=== PATIENT | female | born 1975 | race Caucasian/White ===

== ENCOUNTER 2019-05-30 10:42 | Outpatient (CLI) | payer OTHER, SELFPAY ==
--- NOTE | 2019-05-30 10:54 | XR_ITS ---
WS: [id number] KUB, 05/30/2019 Clinical Data: back pain Comparison: None. Findings: No abnormal intraabdominal masses or calcifications are seen. There is no dilatated small bowel or ev idence of obstruction. There are clips in the right upper quadrant from a cholecystectomy. There is a moderate amount of fec al material throughout the colon. XR/XR KUB [id number] Impression: Negative KUB.
[2019-05-30 11:35] LABS: Urine Appearance Clear (CLEAR); Urine Color Yellow (Yellow)
[2019-05-30 11:36] LABS: Bilirubin Urine Neg (NEGATIVE); Blood Urine Neg (Negative); Glucose Urine UA Norm (Normal); Ketones Urine Negative (Negative); Leukocyte Esterase Urine Negative (Negative); Nitrate Urine Negative (Negative); Protein Urine Neg (Negative); Sulfosalicylic Acid Urine Negative; Urobilinogen Urine Norm (Negative); pH Urine 8 (5-7)
[2019-05-30 11:42] LABS: Add Urine Culture? No; Bacteria Urine TRACE
== END 2019-05-30 10:43 | disposition home or self-care (01) ==
LOC: RAD 10:45
PROVIDERS: Family Provider Internal Medicine; PCP Internal Medicine; Visit Provider Internal Medicine
DX: M54.9 Dorsalgia, unspecified (principal)
CPT/HCPCS: 74018; 81001

== ENCOUNTER → 2019-11-17 12:33 | Outpatient (BNVA) | payer OTHER, SELFPAY | PROVIDERS: Family Provider Internal Medicine; PCP Internal Medicine; Visit Provider Nurse Practitioner Family | DX: R05 Cough (principal) | CPT/HCPCS: 71046 ==

== ENCOUNTER → 2019-11-20 16:25 | Outpatient (BNVA) | payer OTHER, SELFPAY | PROVIDERS: Family Provider Internal Medicine; PCP Internal Medicine; Visit Provider Nurse Practitioner Family | DX: K20.9 Esophagitis, unspecified (principal); K21.9 Gastro-esophageal reflux disease without esophagitis; R53.83 Other fatigue; R10.9 Unspecified abdominal pain; Z79.899 Other long term (current) drug therapy | CPT/HCPCS: 80053; 82150; 83690; 85025 ==

== ENCOUNTER → 2020-03-12 14:55 | Outpatient (BNVA) | payer OTHER, SELFPAY | PROVIDERS: Family Provider Internal Medicine; PCP Internal Medicine; Visit Provider Family Medicine | DX: Z11.59 Encounter for screening for other viral diseases (principal); Z20.828 Contact with and (suspected) exposure to other viral communicable diseases | CPT/HCPCS: 87635 ==

== ENCOUNTER → 2020-03-14 00:01 | Outpatient (BNVA) | payer OTHER, SELFPAY | PROVIDERS: Family Provider Internal Medicine; PCP Internal Medicine; Visit Provider Nurse Practitioner Family | DX: Z20.828 Contact with and (suspected) exposure to other viral communicable diseases (principal); R06.02 Shortness of breath; J06.9 Acute upper respiratory infection, unspecified; R06.00 Dyspnea, unspecified; R06.2 Wheezing | CPT/HCPCS: 87426 ==

== ENCOUNTER → 2020-08-27 16:00 | Outpatient (BNVA) | payer OTHER, SELFPAY | PROVIDERS: Family Provider Internal Medicine; PCP Internal Medicine; Visit Provider Internal Medicine | DX: E04.9 Nontoxic goiter, unspecified (principal); K83.4 Spasm of sphincter of Oddi | CPT/HCPCS: 84443 ==

== ENCOUNTER 2020-09-23 08:03 | Outpatient (CLI) | payer OTHER, SELFPAY ==
--- NOTE | 2020-09-23 08:30 | US_ITS ---
WS: [id number] THYROID ULTRASOUND (TI-RADS CRITERIA) History: Nontoxic goiter.. Technique: Ultrasound examination of the thyroid and adjacent soft tissues is performed. FINDINGS: Right lobe: 2.7 cm x 1.1 cm x 0.8 cm. Volume: 1.3 cm3. Normal size. Calcified nodule in the inferior pole measures 4 x 4 mm. There is shadowing posteriorly. No dominant or suspicious mass. Lymph nodes: None. Left lobe: 3.9 cm x 1.3 cm x 1.0 cm. Volume: 2.6 cm3. Normal size and echotexture. No significant or dominant nodules are present. Lymph nodes: None US/US thyroid [id number] Impression: TR1 Recommendation:No FNA or follow-up. Based upon the TI-RADS criteria the calcified subcentimeter nodule in the lower pole of the RIGHT thyroid does not need further workup.
== END 2020-09-23 08:04 | disposition home or self-care (01) ==
LOC: RAD 08:09
PROVIDERS: PCP Internal Medicine; Visit Provider Internal Medicine
DX: E04.9 Nontoxic goiter, unspecified (principal)
CPT/HCPCS: 76536

== ENCOUNTER → 2021-02-13 15:47 | Outpatient (BNVA) | payer OTHER, SELFPAY | PROVIDERS: PCP Internal Medicine; Visit Provider Internal Medicine | DX: I47.1 Supraventricular tachycardia (principal); F41.1 Generalized anxiety disorder | CPT/HCPCS: 84443 ==

== ENCOUNTER → 2021-02-28 00:01 | Outpatient (BNVA) | payer OTHER, SELFPAY | PROVIDERS: PCP Internal Medicine; Visit Provider Obstetrics & Gynecology | DX: R32 Unspecified urinary incontinence (principal); N81.10 Cystocele, unspecified; N81.6 Rectocele | CPT/HCPCS: 87086 ==

== ENCOUNTER → 2021-03-25 10:03 | Outpatient (BNVA) | payer OTHER, SELFPAY | PROVIDERS: PCP Internal Medicine; Visit Provider Nurse Practitioner Family | DX: Z20.822 Contact with and (suspected) exposure to COVID-19 (principal) | CPT/HCPCS: 87635 ==

== ENCOUNTER → 2021-04-04 12:44 | Outpatient (BNVA) | payer OTHER, SELFPAY | PROVIDERS: PCP Internal Medicine; Visit Provider Obstetrics & Gynecology | DX: Z20.822 Contact with and (suspected) exposure to COVID-19 (principal); N39.3 Stress incontinence (female) (male); N81.10 Cystocele, unspecified; N81.6 Rectocele | CPT/HCPCS: 87635 ==

== ENCOUNTER 2021-04-09 11:25 | Observation (INO) | payer OTHER, SELFPAY ==
[2021-04-07 12:57] VITALS: BMI 27.8
--- NOTE | 2021-04-07 13:14 | ANES.PREANE2 ---
Pre-Anesthetic Assessment Pre-Anesthetic Assessment: Height/Weight: Height 1.73 m Weight 83.007 kg Preop Diagnosis: rectocele Proposed Procedure: Operation Date: 04/09/21 09:55 Proposed Procedures p Anterior Repair augmented w/ allograft 93708 25400 N81.10 N81.6 N39.3(Not Applicable) - Giorgio Diamond MD s Posterior Repair(Not Applicable) - Giorgio Diamond MD Familial anesthetic complications: PONV Social: Social History: No alcohol and No tobacco Exam: Pre-Anes Outpt Exam: alert, oriented x 3, clear to auscultation bilaterally and regular rate & rhythm Airway: MP: 1 Dentition: Chipped (front) Pulmonary: Comments: COVID CV/HEM: CV/HEM: HTN and OK (NSTEMI in December (they think it was demand ischemia from SVT during covid)) Comments: Hx SVT , Factor V leiden carrier, but no hx of blood clots GI: GI: GERD Metabolic: Metabolic: Thyroid Anesthetic Plan: ASA status: 3 Anesthesia: General Risk of > 500 ml blood loss (7ml/kg in children): No PFSH Anesthesia PFSH: Medical History Calculus of kidney Chronic cystitis Esophagitis determined by endoscopy Factor V Leiden carrier Hypothyroid (~2013) Intraductal papilloma of both breasts both ducts removed No pertinent past medical history neghx: htn,dm,dvt/pe PCP: Dr. Cervantes Surgical History (Updated 04/07/21 @ 08:13 by Isabella Van RN) History of biliary duct stent placement (~2018) bilateral removal Hx of breast augmentation (~2001) Hx of laparoscopy (~2008) treatment of right ovarian chocolate cyst Hx of shoulder surgery (~1991) R shoulder Mammary duct ectasia (~2014) S/P cholecystectomy (~2014) S/P hysterectomy (~2001) prolapse--- severe; cystocele and rectocele repair Status post bladder repair (~2001) Family History Mother Hypertension Father Hypertension Heart disease Hypercholesteremia Grandmother Diabetes Maternal Heart disease Maternal Grandfather Heart disease Maternal Hypercholesteremia Maternal and Paternal Stroke Maternal Denies family history of Colon cancer Ovarian cancer Breast cancer Uterine cancer Thyroid disease Data Anesthesia Cardiac Studies: No Data to Display
[2021-04-07 14:23] LABS: OR HCG Qualitative Urine Negative (Negative)
[2021-04-07 15:37] LABS: Add Urine Microscopic? NO; Charge for UA Resulting for Rev
[2021-04-07 15:47] LABS: Basophils # 0.1 10^3/uL (0.0-0.1); Basophils % 0.7 %; Eosinophils # 0.2 10^3/uL (0.0-0.8); Eosinophils % 3.6 %; Hematocrit 39.9 % (37.0-47.0); Hemoglobin 13.5 g/dL (11.5-15.3); Lymphocytes # 2.4 10^3/uL (0.8-4.8); Lymphocytes % 35.9 %; Mean Corpuscular HGB Conc 33.8 g/dL (30.0-36.0); Mean Corpuscular Hemoglobin 31.1 pg (28.0-34.0); Mean Corpuscular Volume 91.9 fl (81-99); Mean Platelet Volume 11.3 fL (7.4-10.4); Monocytes # 0.3 10^3/uL (0.2-0.9); Monocytes % 4.6 %; Neutrophils # 3.68 10^3/uL (1.8-7.7); Neutrophils % 54.9 %; Nucleated Red Blood Cells % 0 %; Platelet Count 321 10^3/cmm (130-400); Red Blood Count 4.34 10^6/uL (4.1-5.3); Red Cell Distribution Width 12.4 % (12.1-15.1); White Blood Count 6.7 10^3/uL (4.0-10.0)
[2021-04-07 16:13] LABS: Alanine Aminotransferase 16 U/L (0-33); Albumin Level 4.3 g/dL (3.5-5.2); Alkaline Phosphatase 77 IU/L (35-105); Anion Gap 14.4 (5-19); Aspartate Amino Transferase 15 U/L (0-32); Blood Urea Nitrogen 9 mg/dL (6-20); Calcium 8.8 mg/dL (8.5-10.5); Carbon Dioxide 27 mmol/L (22-29); Chloride 98 mmol/L (98-107); Globulin 2.1 g/dL (1.3-4.6); Glomerular Filtration Rate 77.2 mL/min (90-130); Glucose 75 mg/dL (65-115); Osmolality Calculated 279 mOsm/kg (285-295); Potassium 3.4 mmol/L (3.5-5.1); Sodium 136 mmol/L (136-145); Total Bilirubin 0.6 mg/dL (0.15-1.2); Total Protein 6.4 g/dL (6.6-8.7)
[2021-04-07 16:27] LABS: Bilirubin Urine Neg (Negative); Blood Urine Neg (Negative); Glucose Urine UA Norm (Normal); Ketones Urine Negative (Negative); Leukocyte Esterase Urine Negative (Negative); Nitrate Urine Negative (Negative); Protein Urine Neg (Negative); Specific Gravity, Urine 1.005 (1.005-1.030); Urine Appearance Clear (CLEAR); Urine Color Straw (Yellow); Urobilinogen Urine Norm (Negative); pH Urine 7 (5-7)
[2021-04-09] VITALS (21 sets, daily range): BP systolic 105–130; BP diastolic 54–87; PULSE 58–90; RESP 15–150; TEMP 36.4–37.2; O2SAT 90–99
[2021-04-09] MEDS: sodium chloride 0.9% 500 ML IV (06:25)
--- NOTE | 2021-04-09 06:28 | P.ANESUD_ITS ---
Pre-Anesthetic Update Pre-Anesthetic Assessment: Date of Surgery/Procedure: 04/09/21 Preop Vanesa gnosis: Cystocele stage III, rectocele stage II Proposed Procedure: Operation Date: 04/09/21 07:00 Proposed Procedures p Anterior Repair augmented w/ allograft [id number] 64289 N81.10 N81.6 N39.3(Not Applicable) - Giorgio Diamond MD s Posterior Repair(Not Applicable) - Giorgio Diamond MD Any changes to Pre-Anesthetic Assessment?: No Last Intake: Intake Last Liquid Date 04/08/21 Last Liquid Time 23:00 Last Solid Date 04/08/21 Last Solid Time 19:00 Labs Last 48hrs: Laboratory Results - last 48 hr 04/07/21 04/07/21 04/07/21 12:51 13:10 13:11 WBC 6.7 RBC 4.34 Hgb 13.5 Hct 39.9 MCV 91.9 MCH 31.1 MCHC 33.8 RDW 12.4 Plt Count 321 MPV 11.3 H Neut % (Auto) 54.9 Lymph % (Auto) 35.9 [place] % (Auto) 4.6 Eos % (Auto) 3.6 Baso % (Auto) 0.7 Neut # (Auto) 3.68 Lymph # (Auto) 2.4 [place] # (Auto) 0.3 Eos # (Auto) 0.2 Baso # (Auto) 0.1 Nucleated RBC % (a uto) 0 Nucleated RBCs # 0.0 Sodium Potassium Chloride Carbon Dioxide Anion Gap BUN Creatinine GFR Calculation Glucose Calculated Osmolal ity Calcium Total Bilirubin AST ALT Alkaline Phosphata se Total Protein Albumin Globulin Urine Color Straw Urine Appearance Clear Urine pH 7 Ur Specific Gravit y 1.005 Urine Protein Neg Urine Glucose (UA) Norm Urine Ketones Negative Urine Blood Neg Urine Nitrate Negative Urine Bilirubin Neg Urine Urobilinogen Norm Ur Leukocyte Cece ase Negative Urine HCG, Qual Negative Blood Type Rho(D) Type Antibody Screen 04/07/21 04/07/21 13:11 13:11 WBC RBC Hgb Hct MCV MCH MCHC RDW Plt Count MPV Neut % (Auto) Lymph % (Auto) [place] % (Auto) Eos % (Auto) Baso % (Auto) Neut # (Auto) Lymph # (Auto) [place] # (Auto) Eos # (Auto) Baso # (Auto) Nucleated RBC % (a uto) Nucleated RBCs # Sodium 136 Potassium 3.4 L Chloride 98 Carbon Dioxide 27 Anion Gap 14.4 BUN 9 Creatinine 0.8 GFR Calculation 77.2 L Glucose 75 Calculated Osmolal ity 279 L Calcium 8.8 Total Bilirubin 0.6 AST 15 ALT 16 Alkaline Phosphata se 77 Total Protein 6.4 L Albumin 4.3 Globulin 2.1 Urine Color Urine Appearance Urine pH Ur Specific Gravit y Urine Protein Urine Glucose (UA) Urine Ketones Urine Blood Urine Nitrate Urine Bilirubin Urine Urobilinogen Ur Leukocyte Cece ase Urine HCG, Qual Blood Type A Positive Rho(D) Type Positive Antibody Screen Negative Vitals: Temperature 97.6 F 04/09/21 06:11 Temperature Source Temporal Artery S can 04/09/21 06:11 Pulse Rate 75 04/09/21 06:11 Pulse Rhythm 04/09/21 06:20 Pulse Strength 3+ Normal 04/09/21 06:20 Respiratory Rate 18 04/09/21 06:11 Blood Pressure 117/87 04/09/21 06:11 Blood Pressure Pat n 97 04/09/21 06:11 Pulse Oximetry 96 04/09/21 06:11 Oxygen Delivery Me thod 04/09/21 06:20 Exam: Pre-Anes Outpt Exam: alert, oriented x 3, clear to auscultation bilaterally and regular rate & rhythm Other Pertinent Information: Other Pertinent Information: Cardiac clearance received from Dr. Burrell Cardiac Studies: No Data to Display
[2021-04-09] MEDS: sodium chloride 0.9% 500 ML 999 ML IV (06:30)
--- NOTE | 2021-04-09 06:31 | W.PM.OPSUD ---
Surgery/Procedure H&P Update DATE OF PROCEDURE: April 09, 2021 DATE H&P PERFORMED: 04/07/21 H&P UPDATE INFORMATION: I have reviewed H&P completed within last 30 days, I have examined patient prior to procedure and No changes to prior documentation PREOP DIAGNOSIS: Cystocele stage III, rectocele stage II PLANNED PROCEDURE: Operation Date: 04/09/21 07:00 Proposed Procedures p Anterior Repair augmented w/ allograft [id number] N81.10 N81.6 N39.3(Not Applicable) - Giorgio Diamond MD s Posterior Repair(Not Applicable) - Giorgio Diamond MD
[2021-04-09] MEDS: sodium chloride 0.9% 1,000 ML 30 ML IV (07:00)
[2021-04-09] MEDS: estrogens Conjugated Cream 30 gm 1 APPLIC VAGINAL (07:43)
--- NOTE | 2021-04-09 09:04 | P.OP_ITS ---
Operative Report Date of procedure: April 09, 2021 Pre-op Diagnosis: Cystocele stage III, rectocele stage II Post-op diagnosis: same Procedure Done: Anterior colporrhaphy augmented with allograft. Single incision mid urethral sling. Posterior colporrhaphy. Cystoscopy Implants: Coloplast Altis single incision sling. Specimens removed/disposition: Excess vaginal mucosa/disposed Surgeon: Giorgio Diamond MD Anesthesia: General Estimated blood loss (mL): 150 IV fluids (mL): 800 Urine output (mL): 100 Condition: stable Disposition: PACU Procedure: After obtaining informed consent, the patient was taken to the operating room and placed in the supine position, given general anesthesia, and prepped and draped in sterile fashion. The abdomen, vulva and vagina were prepped and draped in a sterile manner. A time out procedure was performed. The anterior vaginal mucosa beneath the midurethra was infiltrated with 0.5% Marcaine with epinephrine. A vertical midline incision was made beneath the midurethra, nearly 1.5 cm length. Careful submucosal dissection was performed bilaterally up to the interior portion of the inferior pubic ramus. The insertion of adductor longus tendon on the patient?s pubic ramus was identified as reference land donnell. Palpated the notch along the internal edge of isch iopubic ramus where the adductor longus tendon and the inferior pubic ramus meet. The Coloplast Altis single incision sling (SIS) was selected. Then the needle of the SIS inserted aiming at the location of this notch. One of the integrated self-fixating tips place onto the needle by sliding it over the end of the needle. The needle/sling assembly was inserted toward the location of identified reference notch making sure that the flat of the handle is perpendicular to the desired path. The needle was tracked along the posterior surface of the ischiopubic ramus until the midline donnell on the mesh is approximately at the midline position under the urethra. The needle was removed and the same was repeated on the contralateral side until the appropriate sling tension under the urethra was achieved ensuring that the mesh lays flat. The needle was removed and vaginal incision was closed in a running interlocking fashion with 2-0 Vicryl. Then the vaginal mucosa was then injected in the midline with normal saline. The vaginal mucosa was scored in the midline with the Bovie approximately 1 cm medial to the urethral meatus to 1 cm distal to the vaginal cuff. This vaginal mucosa was then undermined and then incised in the midline with the Metzenbaum scissors. The lateral aspects of the vaginal mucosa were then grasped with the Allis clamps and the vaginal mucosa was then dissected off the underlying fascia with the Metzenbaum scissors. Again, there was noted to be quite a bit of oozing at the incision, which was controlled with cautery. After adequate dissection was performed, bilaterally. The Coloplast Allograft is modified at time of application to fit spacea, 3 x 3 cm piece . The Coloplast Allograft placed in front of cystocele ready to be implanted with the Basement Membrane facing the vagina mucosa. Suture is placed at distal end of graft and placed towards vaginal cuff. Final suture is placed on proximal portion of the graft to complete the placement overlying the bladder. Then Interrupted vertical mattress sutures of 0 Vicryl were used to elevate the cystocele superiorly. The excessive vaginal mucosa was then trimmed with the Metzenbaum scissors and the vaginal m ucosa was then reapproximated in the running interlocking fashion with 2-0 Vicryl. Then the Dominique catheter was removed and cystoscope was inserted. The bladder was filled with sterile water. Complete evaluation of the bladder mucosa was performed noting no lacerations, dimpling, tears, bleeding of the mucosa or muscular layers. Both ureteral orifices were identified. Prompt excretion of urine from both ureteral orifices was noted. Cystoscope was withdrawn. The Dominique catheter was replaced. Excellent hemostasis was obtained. A vaginal pack is placed overnight as postoperative support for the vaginal tissues after graft placement and closure of vaginal incisions. Sponge, lap, needle, and instrument counts were correct times three. The patient was taken to the recovery room, awake and in stable condition. Iwas call back by nurse concerned with vaginal bleeding. The patietn was placed again dorsal lithothomy position and examine. No excess bleeding noted and the vagina was repacked with premarin soak vaginal packing.
--- NOTE | 2021-04-09 09:27 | SUR.OPER ---
908 when the pt was moved over from the or table to the rney, quite a bit of bleeding was noticed in the vaginal area and the packing was soaked. Dr Diamond was call back into the room, pt placed in stirrups and examined. pressure applied, bleeding slowed. New packing applied and pt taken to recovery in stable condition.
[2021-04-09] MEDS: HYDROmorphone 1 mg/mL INJ 1 mL 0.5 MG IVP ×2 (09:28→09:47)
[2021-04-09] MEDS: acetaminophen 1,000 MG/100 ML PIGGYBACK 400 MG IV (09:32)
[2021-04-09] MEDS: scopolamine 1.5 Patch 1 PATCH TRANSDERMA (10:35)
[2021-04-09] MEDS: HYDROmorphone 1 mg/mL INJ 1 mL 0.25 MG IVP (11:24)
--- NOTE | 2021-04-09 11:44 | ANE.PACU2 ---
Inpatient post-anesthesia follow up: Airway intact: Yes Vital signs: Temperature 97.6 F Pulse Rate 61 Respiratory Rate 18 Blood Pressure 115/54 Pulse Oximetry 96 Oxygen Delivery Me thod Room Air Oxygen Flow Rate Fraction of Inspir ed Oxygen Hydration adequate: Yes Nausea and vomiting: No Pain level: 2 Mental status: Baseline
[2021-04-09] MEDS: ketorolac 30 mg/mL INJ IVP ×3 (12:00→23:34)
[2021-04-09] MEDS: dextrose 5%-lactated ringers 1,000 ML 125 ML IV (12:00)
[2021-04-09] MEDS: HYDROcodone-acetaminophen 5-325 mg Tablet PO ×2 (14:45→20:40)
[2021-04-09] MEDS: docusate sodium 100 mg Capsule PO (17:15)
[2021-04-09] MEDS: famotidine 20 mg Tablet 40 MG PO (17:15)
[2021-04-09] MEDS: dicyclomine 10 mg Capsule PO ×2 (17:15→20:40)
[2021-04-09] MEDS: pantoprazole DR 40 mg Tablet PO (17:16)
[2021-04-09] MEDS: metoprolol succinate ER (24 HR) 25 mg Tablet 12.5 MG PO (17:30)
[2021-04-09] MEDS: alum-mag-hydroxide-sime 30 mL UDC PO ×2 (18:25→23:33)
[2021-04-10] MEDS: HYDROcodone-acetaminophen 5-325 mg Tablet PO ×2 (03:38→10:22)
[2021-04-10 03:40] VITALS: BP 102/53; PULSE 61; RESP 18; TEMP 36.7; O2SAT 96
--- NOTE | 2021-04-10 04:41 | PC.NURSE ---
Addendum entered by Veronika Quinonez RN 04/10/21 04:42: VAG PACKING AND BEAN REMOVED AT 0429 Original Note: VAGINAL PACKING AND BEAN CATH REMOVED AT THIS TIME PER DR. SAVAGE
[2021-04-10 04:44] LABS: Hematocrit 31.6 % (37.0-47.0); Hemoglobin 10.4 g/dL (11.5-15.3); Mean Corpuscular HGB Conc 32.9 g/dL (30.0-36.0); Platelet Count 285 10^3/cmm (130-400); Red Blood Count 3.36 10^6/uL (4.1-5.3); Red Cell Distribution Width 12.4 % (12.1-15.1); White Blood Count 12.7 10^3/uL (4.0-10.0)
[2021-04-10] MEDS: ketorolac 30 mg/mL INJ IVP (06:15)
[2021-04-10] MEDS: metoprolol succinate ER (24 HR) 25 mg Tablet 12.5 MG PO (08:02)
[2021-04-10] MEDS: docusate sodium 100 mg Capsule PO (08:02)
[2021-04-10] MEDS: ibuprofen 800 mg tablet PO (08:02)
[2021-04-10] MEDS: metformin 500 mg Tablet PO (08:03)
[2021-04-10] MEDS: aspirin 81 mg EC Tablet PO (08:03)
[2021-04-10] MEDS: famotidine 20 mg Tablet 40 MG PO (08:03)
[2021-04-10] MEDS: pantoprazole DR 40 mg Tablet PO (08:03)
[2021-04-10] MEDS: levothyroxine 112 mcg Tablet PO (09:16)
[2021-04-10 09:49] VITALS: BP 106/58; PULSE 60; RESP 16; TEMP 36.7; O2SAT 99
--- NOTE | 2021-04-10 09:56 | P.DS_ITS ---
Discharge Providers ETHNOGRAPHER Date of Admission: 04/09/21 11:25 Date of Discharge: 04/10/21 Attending Provider at Admission: Giorgio Diamond MD Attending Provider at Discharge: Giorgio Diamond MD Primary Care Provider: Koffi Cervantes MD Reason for Visit Reason for Visit: Cystocele grade 3, Rectocele grade 2, Stress Hospital Course Hospital Course Mrs. Eid 46-year-old female with a history of cystocele stage III associated with stress urinary incontinence and rectocele stage II. She was admitted for planned anterior colporrhaphy augmented with allograft, single incision mid- urethral sling and posterior colporrhaphy. Procedures were performed without complication. Overnight observation was uneventful. She is postoperative day 1, afebrile and hemodynamically stable. Tolerating diet well. Ambulating without difficulty. PVR within normal limits. Cystoscopy was counseled regarding soft mechanical diet. Postop pain medication had previously been prescribed yesterday due to today being a holiday and the pharmacy was called to be close and the system does not allow tube prescribed discharge medication before discharge. Physical Exam Narrative: EXAM NARRATIVE: GA: Alert and oriented ?3. HEENT: WNL. Heart: Regular rate and rhythm. Lungs: Clear to auscultation bilaterally. Abdomen: Bowel sounds present, nontender CLINICAL SAFETY SPECIALIST: spotting. Some tenderness Extremities: No edema, no cyanosis, no calves pain. Urinary Catheter Management^: Dominique: Cath Placed During This Visit: yes, but has since been removed by the nurse Reason for Continuing Indwelling Catheter: Decision to DC Catheter Urinary Catheter Date of Insertion: 04/09/21 Urinary Catheter Time of Insertion: 07:28 Date Urinary Catheter Removed: 04/10/21 Time Urinary Catheter Discontinued: 04:29 History History History 2 Term 2 Miscarriages/Ectopic 0 0 Living Children 2 Discharge Data Data Completed and Pending: Pending at discharge Category Date Time Status ES surgery / GI i mages Routine Exams 04/09/21 08:22 Taken Labs from last 24 hours 04/10/21 04:36 WBC 12.7 H RBC 3.36 L Hgb 10.4 L Hct 31.6 L MCV 94.0 MCH 31.0 MCHC 32.9 RDW 12.4 Plt Count 285 MPV 11.0 H Vitals: Last Vital Signs Temp 98.1 F 04/10/21 09:49 Pulse 60 04/10/21 09:49 Resp 16 04/10/21 09:49 BP 106/58 04/10/21 09:49 Pulse Ox 99 04/10/21 09:49 Discharge Plan Discharge Patient Disposition: Home Condition: Stable Prescriptions: Continued famotidine 20 mg tablet 40 mg PO BID Qty: 30 RF: 3 Viibryd 40 mg tablet 40 mg PO DAILY Qty: 90 RF: 3 dicyclomine 10 mg capsule 10 mg PO TID RF: 0 metoprolol succinate 25 mg tablet extended release 24 hr 12.5 mg PO BID RF: 0 aspirin 81 mg tablet,delayed release (DR/EC) 81 mg PO DAILY RF: 0 multivitamin Tablet 1 tab PO DAILY RF: 0 estradiol [Estrace] 0.01 % (0.1 mg/gram) cream 1 appful vaginal DAILY RF: 0 ondansetron HCl [Zofran] 4 mg tablet 4 mg PO Q8H PRN (Reason: nausea and vomiting) Qty: 30 RF: 0 metformin 500 mg tablet 500 mg PO DAILY Qty: 30 RF: 3 levothyroxine 112 mcg tablet 112 mcg PO DAILY Qty: 90 RF: 2 pantoprazole 40 mg tablet,delayed release (DR/EC) 40 mg PO BID Qty: 60 RF: 2 Discharge Orders: Discharge Order (Routine); Ordered 04/10/21 Ordered By: Giorgio Diamond Referrals: Giorgio Diamond MD [Physician] - 04/25/21 9:45 am (Your 2 week post-op appointment is scheduled for 04/25/21 @9:45. Your 6 week post-op appointment is scheduled for 05/26/21 @9:30. ) Discharge Diet: GI Soft and Soft Mechanical Discharge Activity: Increase activity as tolerated Patient Instructions: Cystocele (DC), Anterior Vaginal Repair (DC), Posterior Vaginal Repair (GEN), OB Discharge Report, OB Food/Drug Interaction Guide, Opioid Safety Activity Restrictions/Additional Instructions: 1. Please call [facility] on next working day to make your post-operative appointment in 2 weeks. 2. Please stay home until you come back to the clinic on first post-operative check up. 3. Please follow instructions on your medications CAREFULLY. 4. If you have abdominal incision, do not cover it unless dressing is necessary because of drainage. OK to shower, but avoid bath. Leave steri-strips until they fall off. If they are still on one week after surgery, you may remove them. 5. If you had vaginal surgery or vaginal repair, Dr. Diamond may instruct you to take SITZ bath. 6. Yellow, blood tinged odorous vaginal discharge is usually normal after hysterectomy or vaginal surgeries. 7. No sexual intercourse, tampons, or douches until you are completely released from the post-operative care. 8. Avoid constipation by eating right and maybe using some Metamucil or Milk of Magnesia. 9. All prescription refills are given during the working hours. Please do no wait till it runs out. Call the clinic at [phone] before your medication runs out. The clinic will get in touch with your doctor to prescribe medications if necessary. 10. Please remain within 40 mile radius from our hospital because emergencies do happen now and then during the post-operative period. 11. If you have stairs at home, take one step at a time slowly and minimize the number of trips. It helps to stay in one floor for the next few days. No lifting except what you can lift by one hand until you are released from the post-operative care. 12. Driving is discouraged until you are well healed. It may be 3-4 weeks bef ore you feel strong enough to drive. You should be able to turn and look through the rear window without pain and you should be able to push the brake pedal very hard without pain before you drive. No fast rules, but SAFETY should be your primary concern. DO NOT drive if you are on sedating medications such as narcotics. 13. Call the clinic (during working hours) to make urgent appointment or go to the Emergency room, if any of the following occurs: i. Vaginal bleeding becomes heavy, more than a period. ii. Incision becomes red and sore, or drains pus. iii. Your temperature is over 100.4 or you have chill. iv. IV site becomes red and swollen (a little ``knot?? is usually OK) v. Persistent nausea and vomiting vi. Persistent constipation or diarrhea vii. Rash or allergic reaction to medications. Discharge Attestations ETHNOGRAPHER Time Spent in Discharge Care*: greater than 30 min Coding Level of Care Code Acute Traffic Control Operator for Rowdy Benoit
[2021-04-10] MEDS: alum-mag-hydroxide-sime 30 mL UDC PO (10:18)
[2021-04-10 10:36] VITALS: BP 106/58; PULSE 60; RESP 16; TEMP 36.7; O2SAT 99
== END 2021-04-10 10:30 | disposition home or self-care (01) ==
LOC: OBGYN 11:25
PROVIDERS: Admitting Provider Obstetrics & Gynecology; PCP Internal Medicine; Visit Provider Obstetrics & Gynecology
PROC: 0JQC0ZZ Repair Pelvic Region Subcutaneous Tissue and Fascia, Open Approach (ICD-10-PCS; CPT 57240; principal; 2021-04-09 07:00)
PROC: (CPT 57250; 2021-04-09 07:00)
DX: N81.10 Cystocele, unspecified (principal); N81.6 Rectocele; N39.3 Stress incontinence (female) (male); I10 Essential (primary) hypertension; K21.9 Gastro-esophageal reflux disease without esophagitis; E03.9 Hypothyroidism, unspecified; I25.2 Old myocardial infarction; Z79.82 Long term (current) use of aspirin; Z79.84 Long term (current) use of oral hypoglycemic drugs
CPT/HCPCS: 57260; 57288; 36415; 51798; 80053; 81003; 84703; 85025; 85027; 86850; 86900; 90471; 90686; 96365; C1713; C1762; G0378; J0690; J1100; J1170; J1885; J2405; J2704; J3010; J3490; J7030; J7040

== ENCOUNTER 2021-04-19 11:26 | Emergency (ER) | payer OTHER, SELFPAY ==
[2021-04-19 11:34] VITALS: BP 153/96; PULSE 91; RESP 16; TEMP 36.9; O2SAT 99
--- NOTE | 2021-04-19 11:48 | CTR_ITS ---
PROCEDURE INFORMATION: Exam: CT Abdomen And Pelvis Without Contrast Exam date and time: 04/19/2021 11:48 AM Age: 46 years old Clinical indication: Other: Exessive vaginal bleeding; Prior surgery; Surgery date: 3-7 days post-operative; Surgery type: Bladder and rectal prolapse surgery; Patient HX: Excessive vaginal bleeding post op TECHNIQUE: Imaging protocol: Computed tomography of the abdomen and pelvis without contrast. Radiation optimization: All CT scans at this facility use at least one of these dose optimization techniques: automated exposure control; mA and/or kV adjustment per patient size (includes targeted exams where dose is matched to clinical indication); or iterative reconstruction. COMPARISON: CT abdomen w con* [id number] 01/27/2019 9:52 AM RADIATION DOSE METRICS: Total DLP (mGy-cm): 1249.67 FINDINGS: Diaphragm: Small sliding hiatal hernia. Liver: The liver is not enlarged. There is a cyst in segment 4A of the liver. Gallbladder and bile ducts: Prior cholecystectomy. No biliary ductal dilatation allowing for that. Pancreas: No peripancreatic inflammation. No pancreatic ductal dilation. Spleen: The spleen is homogeneous and is not enlarged. Adrenal glands: No adrenal mass. Kidneys and ureters: No hydronephrosis or nephrolithiasis. Stomach and bowel: There is diverticulosis in the sigmoid colon without diverticulitis. No bowel obstruction. Appendix: The appendix has a normal caliber with no wall thickening. No periappendiceal inflammation. Intraperitoneal space: No ascites or pneumoperitoneum. Vasculature: No abdominal aortic aneurysm. Lymph nodes: No pathologically enlarged lymph nodes. Urinary bladder: No urinary bladder calculus or wall thickening. Reproductive: There is a circumscribed homogeneous relatively hyperechoic abnormality which appears to lie between the expected location of the vagina anteriorly and the rectum posteriorly. This measures approximately 7.0 cm x 6.4 cm x 3.9 cm in size. The general appearance would be compatible with a hematoma. This noncontrast study cannot determine if there is active hemorrhage at this time. Bones/joints: There is disc degeneration with vacuum disc at L4-L5. Multilevel facet arthropathy in the lower lumbar spine. Bilateral hip joint degeneration. Soft tissues: Tiny umbilical hernia containing fat. CT/CT abdomen pelvis wo con [id number] IMPRESSION: Finding which would be compatible with a hematoma situated between the expected location of the vagina and the rectum. This study cannot determine if there is active hemorrhage at this time or not. Radiation Dose CTDIVOL = (mGy): DLP = 1249.67 (mGy-cm)
--- NOTE | 2021-04-19 11:51 | W.ED.GENADLT ---
HPI - General Adult General: Chief complaint: General Medical Stated complaint: VAGINAL BLEEDING:SURGERY 04.09.21/HUSSEIN Time Seen by Provider: 04/19/21 11:42 Source: patient Mode of arrival: ambulatory Limitations: no limitations History of Present Illness: HPI narrative: 46-year-old female presents to the ER today for vaginal bleeding after having surgery 2 weeks ago. Patient reports she had a rectocele repair and bladder sling performed by Dr. Diamond 2 weeks ago. Patient reports she had normal bleeding postop which stopped about 3 days ago. Patient reports yesterday she noticed some increased bleeding and today she is soaking more than one pad per hour. The nurse practitioner with Dr. Diamond's office did examine patient this morning and did not notice a clot or anything obvious causing the bleeding. She did contact Dr. Burk who recommended patient come to ER for imaging and blood work. Patient reports she is not dizzy or weak feeling at this time. She reports her pain is about the same as it was, no increased pain at this time. Patient reports she has some bladder tenderness but that has been present and reports that got worse with some gas pain this week but that improved. Patient does have a history of factor V clotting disorder. Onset (ago): day(s) Location: pelvis Severity: severe Associated symptoms: Reports other (vaginal bleeding); Deny chest pain, dyspnea, headache(s), nausea, rash, palpitations or vomiting Review of Systems General: Reports: 10 or more systems reviewed and unremarkable except in HPI and below Const: Denies: fever(s), chills or body aches ENMT: Denies: throat pain, nasal discharge or nasal congestion Card: Denies: chest pain or palpitations Resp: Denies: dyspnea, productive cough or wheezing GI: Denies: abdominal pain, nausea, vomiting, diarrhea or constipation : Reports: vaginal bleeding; Denies: flank pain, difficulty voiding, dysuria, urinary frequency, urinary urgency, vaginal odor or vaginal discharge Musc: Denies: neck pain or back pain Skin/Breast: Denies: rash or pruritus Neuro: Denies: headache(s) PFS ED PFSH: Medical History Calculus of kidney Chronic cystitis Esophagitis determined by endoscopy Factor V Leiden carrier Hypothyroid (~2013) Intraductal papilloma of both breasts both ducts removed No pertinent past medical history neghx: htn,dm,dvt/pe PCP: Dr. Cervantes Surgical History History of biliary duct stent placement (~2018) bilateral removal Hx of breast augmentation (~2001) Hx of laparoscopy (~2008) treatment of right ovarian chocolate cyst Hx of shoulder surgery (~1991) R shoulder Mammary duct ectasia (~2014) S/P cholecystectomy (~2014) S/P hysterectomy (~2001) prolapse--- severe; cystocele and rectocele repair Status post bladder repair (~2001) Family History Mother Hypertension Father Hypertension Heart disease Hypercholesteremia Grandmother Diabetes Maternal Heart disease Maternal Grandfather Heart disease Maternal Hypercholesteremia Maternal and Paternal Stroke Maternal Denies family history of Colon cancer Ovarian cancer Breast cancer Uterine cancer Thyroid disease Physical Exam Const: COMMON NORMALS: no acute distress, average body habitus, patient oriented x3 and healthy appearing GENERAL APPEARANCE: cooperative and comfortable HENMT: COMMON NORMALS: normocephalic, external ears normal and Normal external nose present HEAD & SCALP: normocephalic NOSE: Normal external nose present EXTERNAL EAR: Yes external ears normal Eye: COMMON NORMALS: conjunctivae normal CONJUNCTIVA: Yes conjunctivae normal Neck/C-Spine: COMMON NORMALS: full ROM Resp: COMMON NORMALS: normal respiratory effort, No retractions and clear to auscultation bilaterally EFFORT & INSPECTION: Yes able to speak in complete sentences AUSCULTATION: clear to auscultation bilaterally, no rales, no rhonchi and no wheezes Cardio: COMMON NORMALS: regular rate, regular rhythm and No murmurs present (Cardio) RATE: regular rate RHYTHM: regular rhythm GI: COMMON NORMALS: Normal to inspection, nondistended, normoactive bowel sounds present and Soft to palpation PALPATION: Yes Soft to palpation, Yes Tenderness to palpation present (GI) (mild suprapubic tenderness) and No Guarding due to palpation present (GI) : OTHER: Deferred, patient just had vaginal exam in the clinic and nurse practitioner was present in the room with her. She did not note a large clot or anything causing the bleeding but reports active bleeding from the vagina. Extremity: COMMON NORMALS: normal to inspection and full ROM Neuro: COMMON NORMALS: patient oriented x3, moves all extremities, no sensory deficits noted and gait normal Psych: COMMON NORMALS: mental status grossly normal, Normal thought process present, cooperative, normal affect and speech normal SPEECH: Yes normal speech THOUGHT PROCESS: Normal thought process present Skin: COMMON NORMALS: no rashes or lesions noted and no wounds GENERAL SKIN EXAM: no rashes or lesions noted Course ED course: Patient presents to the ER today for vaginal bleeding 2 weeks postop a rectocele and bladder sling repair. Patient reports bleeding had stopped about 3 to 4 days ago and then started again yesterday. Patient reports bleeding through more than one pad per hour. Denies any other symptoms at this time. Patient told to come to the ER by Dr. Diamond for lab work, imaging and medication. Consultations: Consultation #1: Spoke with Dr. Diamond, he would like CBC, CT abd/pelvis and pt to receive TXA at this time. Time: 11:51 Consultation #2: Spoke with radiologist who notes a probable hematoma between the vagina and rectum with some gas noted. Time: 13:25 Consultation #3: Spoke again with Dr. Diamond and gave him labs results and Ct result. He would like pt to receive the TXA and then F/U in clinic first of the week. Time: 13:25 Vital Signs: Vital signs: Vital Signs Temperature 98.4 F 04/19/21 11:34 Pulse Rate 91 04/19/21 12:23 Respiratory Rate 16 04/19/21 12:23 Blood Pressure 153/96 04/19/21 12:23 Pulse Oximetry 99 04/19/21 12:23 MDM - General Adult MDM Narrative: Medical decision making narrative: 46-year-old female presents to the ER today 2 weeks postop for increased vaginal bleeding x2 days. Patient reports bleeding is significantly worse over the last 24 hours and she is filling 1 pad per hour. Patient reports it is worse when she standing. She denies any dizziness or lightheadedness. Patient went to the clinic and was seen and had vaginal exam. There was not noted to be any clot but appeared to be slow bleed. Spoke with Dr. Diamond who recommended CT and TXA administration. CBC shows hemoglobin is 12.[address] indicates probable hematoma between the vagina and the rectum. TXA was administered. Patient is feeling well at this time. Spoke with Dr. Diamond again who recommends patient just follow-up in clinic first of this week. For new or worsening symptoms return to the ER. Patient verbalized understanding and is in agreement with this treatment plan. Lab Data: Attestation: I reviewed the patient's lab results. Lab results narrative: Hemoglobin stable Labs: Lab Results 04/19/21 04/19/21 12:08 12:08 WBC 8.5 10^3/uL 10^3/ uL (4.0-10.0) RBC 3.86 10^6/uL L 10 ^6/uL (4.1-5.3) Hgb 12.2 g/dL g/dL (11.5-15.3) Hct 34.6 % L % (37.0-47.0) MCV 89.6 fl fl (81-99) MCH 31.6 pg pg (28.0-34.0) MCHC 35.3 g/dL g/dL (30.0-36.0) RDW 13.0 % % (12.1-15.1) Plt Count 328 10^3/cmm 10^3 /cmm (130-400) MPV 10.7 fL H fL (7.4-10.4) Neut % (Auto) 70.5 % % Lymph % (Auto) 21.4 % % Evans % (Auto) 4.2 % % Eos % (Auto) 2.8 % % Baso % (Auto) 0.6 % % Neut # (Auto) 6.01 10^3/uL 10^3 /uL (1.8-7.7) Lymph # (Auto) 1.8 10^3/uL 10^3/ uL (0.8-4.8) Evans # (Auto) 0.4 10^3/uL 10^3/ uL (0.2-0.9) Eos # (Auto) 0.2 10^3/uL 10^3/ uL (0.0-0.8) Baso # (Auto) 0.1 10^3/uL 10^3/ uL (0.0-0.1) Nucleated RBC % (a uto) 0 % % Nucleated RBCs # 0.0 /100WBC /100W BC Sodium 133 mmol/L L mmol /L (136-145) Potassium 4.2 mmol/L mmol/L (3.5-5.1) Chloride 99 mmol/L mmol/L (98-107) Carbon Dioxide 22 mmol/L mmol/L (22-29) Anion Gap 16.2 (5-19) BUN 7 mg/dL mg/dL (6-20) Creatinine 0.7 mg/dL mg/dL (0.5-0.9) GFR Calculation 90.1 mL/min mL/mi n (90-130) Glucose 92 mg/dL mg/dL (65-115) Calculated Osmolal ity 274 mOsm/kg L mOs m/kg (285-295) Calcium 8.8 mg/dL mg/dL (8.5-10.5) Total Bilirubin 0.4 mg/dL mg/dL (0.15-1.2) AST 13 U/L U/L (0-32) ALT 15 U/L U/L (0-33) Alkaline Phosphata se 77 IU/L IU/L (35-105) Total Protein 6.7 g/dL g/dL (6.6-8.7) Albumin 4.2 g/dL g/dL (3.5-5.2) Globulin 2.5 g/dL g/dL (1.3-4.6) Imaging Data^: CT Abd/Pel: Radiologist's impression: [address] [address] [address] Scan Report Signed with Addenda Patient: Alma Lee Unit #: [id number] : 1975 Age/Sex: 46 / F ADM Date: 04/19/21 Loc: ER Room/Bed: Attending Dr: Ordering Provider/Ordering MD: Mame Patel Date of Service: 04/19/21 Procedure(s): CT abdomen pelvis wo con [id number] Accession Number(s): [id number] Report Number: [id number]/CT abdomen pelvis wo con [id number] THIS REPORT CONTAINS FINDINGS THAT MAY BE CRITICAL TO PATIENT CARE. The exam findings were verbally communicated by me via telephone conference to Mame Patel at 1:18 PM [employer] on 04/19/2021. The findings were acknowledged and understood. Radiation Dose CTDIVOL = (mGy): DLP = 1249.67 (mGy-cm) Addendum Dictated By: Forest Cassidy Addendum Signed By: Forest Cassidy Signed Date/Time: 04/19/21 1324 Addendum Cosigned By: PROCEDURE INFORMATION: Exam: CT Abdomen And Pelvis Without Contrast Exam date and time: 04/19/2021 11:48 AM Age: 46 years old Clinical indication: Other: Exessive vaginal bleeding; Prior surgery; Surgery date: 3-7 days post-operative; Surgery type: Bladder and rectal prolapse surgery; Patient HX: Excessive vaginal bleeding post op TECHNIQUE: Imaging protocol: Computed tomography of the abdomen and pelvis without contrast. Radiation optimization: All CT scans at this facility use at least one of these dose optimization techniques: automated exposure control; mA and/or kV adjustment per patient size (includes targeted exams where dose is matched to clinical indication); or iterative reconstruction. COMPARISON: CT abdomen w con* [id number] 01/27/2019 9:52 AM RADIATION DOSE METRICS: Total DLP (mGy-cm): 1249.67 FINDINGS: Diaphragm: Small sliding hiatal hernia. Liver: The liver is not enlarged. There is a cyst in segment 4A of the liver. Gallbladder and bile ducts: Prior cholecystectomy. No biliary ductal dilatation allowing for that. Pancreas: No peripancreatic inflammation. No pancreatic ductal dilation. Spleen: The spleen is homogeneous and is not enlarged. Adrenal glands: No adrenal mass. Kidneys and ureters: No hydronephrosis or nephrolithiasis. Stomach and bowel: There is diverticulosis in the sigmoid colon without diverticulitis. No bowel obstruction. Appendix: The appendix has a normal caliber with no wall thickening. No periappendiceal inflammation. Intraperitoneal space: No ascites or pneumoperitoneum. Vasculature: No abdominal aortic aneurysm. Lymph nodes: No pathologically enlarged lymph nodes. Urinary bladder: No urinary bladder calculus or wall thickening. Reproductive: There is a circumscribed homogeneous relatively hyperechoic abnormality which appears to lie between the expected location of the vagina anteriorly and the rectum posteriorly. This measures approximately 7.0 cm x 6.4 cm x 3.9 cm in size. The general appearance would be compatible with a hematoma. This noncontrast study cannot determine if there is active hemorrhage at this time. Bones/joints: There is disc degeneration with vacuum disc at L4-L5. Multilevel facet arthropathy in the lower lumbar spine. Bilateral hip joint degeneration. Soft tissues: Tiny umbilical hernia containing fat. CT/CT abdomen pelvis wo con [id number] IMPRESSION: Finding which would be compatible with a hematoma situated between the expected location of the vagina and the rectum. This study cannot determine if there is active hemorrhage at this time or not. Radiation Dose CTDIVOL = (mGy): DLP = 1249.67 (mGy-cm) Dictated By: Forest Cassidy Signed By: Forest Cassidy Signed Date/Time: 04/19/21 1324 Discharge Plan Discharge Patient Disposition: Home Clinical Impression: Post-op bleeding Qualifiers: Surgical complication system/body Area: genitourinary Procedure type: genitourinary Qualified Code(s): N99.820 - Postprocedural hemorrhage of a genitourinary system organ or structure following a genitourinary system procedure Condition: Stable Prescriptions: No Action famotidine 20 mg tablet 40 mg PO BID Qty: 30 RF: 3 Viibryd 40 mg tablet 40 mg PO DAILY Qty: 90 RF: 3 dicyclomine 10 mg capsule 10 mg PO TID RF: 0 metoprolol succinate 25 mg tablet extended release 24 hr 12.5 mg PO BID RF: 0 aspirin 81 mg tablet,delayed release (DR/EC) 81 mg PO DAILY RF: 0 multivitamin Tablet 1 tab PO DAILY RF: 0 estradiol [Estrace] 0.01 % (0.1 mg/gram) cream 1 appful vaginal DAILY RF: 0 ondansetron HCl [Zofran] 4 mg tablet 4 mg PO Q8H PRN (Reason: nausea and vomiting) Qty: 30 RF: 0 metformin 500 mg tablet 500 mg PO DAILY Qty: 30 RF: 3 levothyroxine 112 mcg tablet 112 mcg PO DAILY Qty: 90 RF: 2 pantoprazole 40 mg tablet,delayed release (DR/EC) 40 mg PO BID Qty: 60 RF: 2 Discharge Orders: Discharge ED (Routine); Ordered 04/19/21 Ordered By: Mame Patel Referrals: Koffi Cervantes MD [Primary Care Provider] - Discharge Diet: Usual diet Discharge Activity: Limit activity as instructed Patient Instructions: Opioid Safety Activity Restrictions/Additional Instructions: Rest recommended. Continue all home medications as previously prescribed. Follow-up with Dr. Diamond first of the week. Return to the ER with any new or worsening symptoms. Coding Level of Care Code ED Meter Tester Polyphase for Rowdy Fwsarmad Exam Comprehensive
[2021-04-19 12:16] LABS: Basophils # 0.1 10^3/uL (0.0-0.1); Basophils % 0.6 %; Eosinophils # 0.2 10^3/uL (0.0-0.8); Eosinophils % 2.8 %; Hematocrit 34.6 % (37.0-47.0); Hemoglobin 12.2 g/dL (11.5-15.3); Lymphocytes # 1.8 10^3/uL (0.8-4.8); Lymphocytes % 21.4 %; Mean Corpuscular HGB Conc 35.3 g/dL (30.0-36.0); Mean Corpuscular Hemoglobin 31.6 pg (28.0-34.0); Mean Corpuscular Volume 89.6 fl (81-99); Mean Platelet Volume 10.7 fL (7.4-10.4); Monocytes # 0.4 10^3/uL (0.2-0.9); Monocytes % 4.2 %; Neutrophils # 6.01 10^3/uL (1.8-7.7); Neutrophils % 70.5 %; Nucleated Red Blood Cells % 0 %; Platelet Count 328 10^3/cmm (130-400); Red Blood Count 3.86 10^6/uL (4.1-5.3); White Blood Count 8.5 10^3/uL (4.0-10.0)
[2021-04-19 12:23] VITALS: BP 153/96; PULSE 91; RESP 16; O2SAT 99
[2021-04-19 12:33] LABS: Alanine Aminotransferase 15 U/L (0-33); Albumin Level 4.2 g/dL (3.5-5.2); Alkaline Phosphatase 77 IU/L (35-105); Anion Gap 16.2 (5-19); Aspartate Amino Transferase 13 U/L (0-32); Blood Urea Nitrogen 7 mg/dL (6-20); Calcium 8.8 mg/dL (8.5-10.5); Carbon Dioxide 22 mmol/L (22-29); Chloride 99 mmol/L (98-107); Globulin 2.5 g/dL (1.3-4.6); Glomerular Filtration Rate 90.1 mL/min (90-130); Glucose 92 mg/dL (65-115); Osmolality Calculated 274 mOsm/kg (285-295); Potassium 4.2 mmol/L (3.5-5.1); Sodium 133 mmol/L (136-145); Total Bilirubin 0.4 mg/dL (0.15-1.2); Total Protein 6.7 g/dL (6.6-8.7)
== END 2021-04-19 13:35 | disposition home or self-care (01) ==
PROVIDERS: Emergency Provider Physician Assistant; PCP Internal Medicine
DX: N99.820 Postprocedural hemorrhage of a genitourinary system organ or structure following a genitourinary system procedure (principal); Z79.82 Long term (current) use of aspirin; Z79.84 Long term (current) use of oral hypoglycemic drugs
CPT/HCPCS: 74176; 80053; 85025; 96365; 99283

== ENCOUNTER → 2021-12-17 14:23 | Outpatient (BNVA) | payer OTHER, SELFPAY | PROVIDERS: PCP Internal Medicine; Visit Provider Nurse Practitioner Women's Health | DX: N89.8 Other specified noninflammatory disorders of vagina (principal); K21.9 Gastro-esophageal reflux disease without esophagitis; K83.4 Spasm of sphincter of Oddi | CPT/HCPCS: 80076; 87070; 87205; 87481 ==

== ENCOUNTER → 2021-12-23 15:21 | Outpatient (BNVA) | payer OTHER, SELFPAY | PROVIDERS: PCP Internal Medicine; Visit Provider Nurse Practitioner Women's Health | DX: N94.10 Unspecified dyspareunia (principal) | CPT/HCPCS: 76830 ==

== ENCOUNTER 2022-11-08 15:23 | Observation (INO) | payer OTHER, SELFPAY ==
[2022-11-08] VITALS (26 sets, daily range): BP systolic 115–140; BP diastolic 82–97; PULSE 81–113; RESP 14–29; TEMP 36.5–36.8; O2SAT 94–100; BMI 22.0
--- NOTE | 2022-11-08 15:31 | ED_ITS ---
HPI - Arrhythmia/Palpitations General: Chief Complaint: Arrhythmia/Palpitations Stated Complaint: SVT Time Seen by Provider: 11/08/22 15:31 History of Present Illness: Ms. Lee is a 47-year-old lady with history of factor V Leiden, NSTEMI, thyroid disorder presented to the emergency department for episode of tachycardia associated with chest pain. She reports few episodes of chest discomfort mostly in her back 5 days ago. Yesterday she had an episode of palpitations associated with more severe pain however was able to vagal maneuver. Today she was outside and had recurrence of symptoms. Severe intensity back pain associated with shortness of breath and lightheadedness. She tried conservative measures however was unsuccessful. She was found by EMS to be in SVT with intermittent loss of consciousness and hypotension. She was given 6 mg adenosine and successfully converted. Currently feels still some discomfort and nausea. Intensity is currently mild to moderate. No other specific changes in health, exacerbating, or alleviating factors identified. Onset (ago): day(s) Duration: intermittent Severity: severe Arrhythmia history: SVT Review of Systems General: Reports: 10 or more systems reviewed and unremarkable except in HPI and below PFSH ED PFSH: Medical History Calculus of kidney Chronic cystitis Elevated troponin Esophagitis determined by endoscopy Factor V Leiden carrier JEFFERY (generalized anxiety disorder) Gastroesophageal reflux disease History of heart attack 01/02/2021 - Nonstemi, nonST elevated miocardial infaction. Hypothyroid (~2013) Intraductal papilloma of both breasts both ducts removed No pertinent past medical history neghx: htn,dm,dvt/pe PCP: Dr. Cervantes PSVT (paroxysmal supraventricular tachycardia) Sphincter of Oddi dysfunction Surgical History H/O bladder repair surgery (~04/09/21) 04/09/2021- anterior colporrhaphy augmented with allograft, single incision mid urethral sling, posterior colporrhaphy and cystoscopy performed by Dr. Diamond at [facility] H/O rectocele repair History of biliary duct stent placement (~2018) bilateral removal Hx of breast augmentation (~2001) Hx of laparoscopy (~2008) treatment of right ovarian chocolate cyst Hx of shoulder surgery (~1991) R shoulder Mammary duct ectasia (~2014) S/P cholecystectomy (~2014) S/P hysterectomy (~2001) prolapse--- severe; cystocele and rectocele repair Status post bladder repair (~2001) Family History Mother Hypertension Father Hypertension Heart disease Hypercholesteremia Grandmother Diabetes Maternal Heart disease Maternal Grandfather Heart disease Maternal Hypercholesteremia Maternal and Paternal Stroke Maternal Family/Other Breast cancer Paternal Aunt--dx age 45 Denies family history of Colon cancer Ovarian cancer Uterine cancer Thyroid disease Physical Exam Const: COMMON NORMALS: alert GENERAL APPEARANCE: cooperative, well developed and ill appearing HENMT: COMMON NORMALS: normocephalic and atraumatic HEAD & SCALP: normocephalic and atraumatic Eye: COMMON NORMALS: conjunctivae normal CONJUNCTIVA: Yes conjunctivae normal SCLERA: sclerae normal Neck/C-Spine: COMMON NORMALS: supple GENERAL: Yes trachea midline Resp: COMMON NORMALS: clear to auscultation bilaterally EFFORT & INSPECTION: Yes able to speak in complete sentences AUSCULTATION: clear to auscultation bilaterally Cardio: COMMON NORMALS: regular rate and regular rhythm RATE: regular rate RHYTHM: regular rhythm GI: COMMON NORMALS: Soft to palpation PALPATION: Yes Soft to palpation and No Tenderness to palpation present (GI) Extremity: GENERAL: Yes normal exam except as noted and No edema Neuro: COMMON NORMALS: moves all extremities SENSORIUM/ORIENTATION: Yes alert and No Orientation impaired Psych: COMMON NORMALS: mental status grossly normal and Normal thought process present THOUGHT PROCESS: Normal thought process present Course Vital Signs: Vital signs: Vital Signs Temperature 97.7 F 11/09/22 16:15 Pulse Rate 79 11/09/22 16:45 Respiratory Rate 15 11/09/22 16:45 Blood Pressure 128/86 11/09/22 17:45 Pulse Oximetry 96 11/09/22 16:45 Oxygen Delivery Me thod Room Air 11/09/22 16:00 MDM - Arrhythmia/Palpitations Medical Decision Making 47-year-old lady with remote history of SVT presenting due to episode of sustained arrhythmia with hypotension and syncope requiring EMS administered chemical cardioversion. Mildly ill appearing however nontoxic. Appears to be back in sinus rhythm. No focal deficits. EKG demonstrates sinus rhythm with normal axis and intervals. Labs with no leukocytosis, normal hemoglobin and platelet count. Metabolic panel with minimal hypokalemia. Positive range 2-hour delta troponin possibly secondary to demand ischemia. No UTI. Chest x-ray with no lobar consolidation or pneumothorax. Patient given antiemetic, fluids, potassium and magnesium replenishment. Patient had a profound episode of dysrhythmia associated with hypotension and syncope. She requires further inpatient monitoring. The results of ED evaluation were discussed with the patient including plan for admission due to requirement for level of care not available if discharged to prevent significant worsening/deterioration. Patient agreeable with plan. Discussed with hospitalist service who was agreeable to admit patient. Medical Records I reviewed the patient's medical records. Lab Data I reviewed the patient's lab results. 11/09/22 02:31 11/09/22 02:31 Radiology Impressions Chest X-Ray 11/08/22 15:51 IMPRESSION: No acute findings. Laboratory Results WBC 8.0 10^3/uL (4.0-10.0) 11/08/22 16:31 RBC 4.18 10^6/uL (4.1-5.3) 11/08/22 16:31 Hgb 13.4 g/dL (11.5-15.3) 11/08/22 16:31 Hct 39.7 % (37.0-47.0) 11/08/22 16:31 MCV 95.0 fl (81-99) 11/08/22 16:31 MCH 32.1 pg (28.0-34.0) 11/08/22 16:31 MCHC 33.8 g/dL (30.0-36.0) 11/08/22 16:31 RDW 12.4 % (12.1-15.1) 11/08/22 16:31 Plt Count 232 10^3/cmm (130-400) 11/08/22 16:31 MPV 10.6 fL (7.4-10.4) H 11/08/22 16:31 Neut % (Auto) 76.0 % 11/08/22 16:31 Lymph % (Auto) 18.4 % 11/08/22 16:31 [place] % (Auto) 4.2 % 11/08/22 16:31 Eos % (Auto) 0.7 % 11/08/22 16:31 Baso % (Auto) 0.5 % 11/08/22 16: Neut # (Auto) 6.10 10^3/uL (1.8-7.7) 11/08/22 16: Lymph # (Auto) 1.5 10^3/uL (0.8-4.8) 11/08/22 16: [place] # (Auto) 0.3 10^3/uL (0.2-0.9) 11/08/22 16: Eos # (Auto) 0.1 10^3/uL (0.0-0.8) 11/08/22 16: Baso # (Auto) 0.0 10^3/uL (0.0-0.1) 11/08/22 16: Nucleated RBC % (auto) 0 % 11/08/22 16: Nucleated RBCs # 0.0 /100WBC 11/08/22 16: D-Dimer 0.34 ug/mIFEU (0-0.59) 11/08/22 16: Sodium 136 mmol/L (136-145) 11/08/22 16: Potassium 3.3 mmol/L (3.5-5.1) L 11/08/22 16: Chloride 103 mmol/L (98-107) 11/08/22 16: Carbon Dioxide 22 mmol/L (22-29) 11/08/22 16: Anion Gap 14.3 (5-19) 11/08/22 16: BUN 8 mg/dL (6-20) 11/08/22 16: Creatinine 0.8 mg/dL (0.5-0.9) 11/08/22 16:31 GFR Calculation 76.9 mL/min (90-130) L 11/08/22 16: Glucose 72 mg/dL (65-115) 11/08/22 16: Estimat Average Glucose 91 11/08/22 16: Hemoglobin A1c 4.8 % (4.0-6.0) 11/08/22 16: Calculated Osmolality 279 mOsm/kg (285-295) L 11/08/22 16: Calcium 8.3 mg/dL (8.5-10.5) L 11/08/22 16: Magnesium 1.9 mg/dL (1.7-2.3) 11/08/22 16:31 Total Bilirubin 1.0 mg/dL (0.15-1.2) 11/08/22 16:31 AST 18 U/L (0-32) 11/08/22 16:31 ALT 18 U/L (0-33) 11/08/22 16:31 Alkaline Phosphatase 88 U/L (35-105) 11/08/22 16:31 Troponin T Baseline 37 ng/L (0-10) H 11/08/22 16:31 Troponin T 120 Minute 103.5 ng/L (0-10) H 11/08/22 18:30 Delta Troponin T 66.5 ABS# (0-10) H* 11/08/22 18:30 NT-Pro-B Natriuret Pep 122 pg/mL (0-125) 11/08/22 16:31 Total Protein 6.0 g/dL (6.6-8.7) L 11/08/22 16:31 Albumin 4.0 g/dL (3.5-5.2) 11/08/22 16: Globulin 2.0 g/dL (1.3-4.6) 11/08/22 16:31 Lipase 25 U/L (13-60) 11/08/22 16:31 TSH 1.78 uIU/mL (0.27-4.20) 11/08/22 18:30 Urine Color Straw (Yellow) 11/08/22 16:03 Urine Appearance Clear (CLEAR) 11/08/22 16:03 Urine pH 7 (5-7) 11/08/22 16:03 Ur Specific [place] 1.000 (1.005-1.030) L 11/08/22 16:03 Urine Protein Neg (Negative) 11/08/22 16:03 Urine Glucose (UA) Norm (Normal) 11/08/22 16:03 Urine Ketones 1+ (Negative) H 11/08/22 16:03 Urine Blood Neg (Negative) 11/08/22 16:03 Urine Nitrate Negative (Negative) 11/08/22 16:03 Urine Bilirubin Neg (Negative) 11/08/22 16:03 Urine Urobilinogen Norm mg/dL (Negative) 11/08/22 16:03 Ur Leukocyte Esterase Negative (Negative) 11/08/22 16:03 Discharge Plan Discharge Patient Disposition: Placed in Observation Admit Provider: Chiara Morin Clinical Impression: Supraventricular tachycardia, Syncope, Hypokalemia, Elevated troponin Coding Level of Care Code ED Road Machine Operator for Rowdy Benoit
--- NOTE | 2022-11-08 15:36 | ECG_ITS ---
[facility] Test Date: 2022-11-08 Pat Name: Alma Lee Department: Room: Gender: Female Save All Operator: : 1975 Requested By: Benitez Juan Order Number: [id number] Ian MD: Ryan Wong M.D. Measurements Intervals [place] Rate: 91 P: 69 RI: 126 QRS: 42 QRSD: 93 T: 52 QT: 369 QTc: 455 Interpretive Statements SINUS RHYTHM Compared to ECG 12/30/2018 03:48:11 Sinus arrhythmia no longer present Electronically Signed On 11-08-2022 17:30:32 CDT by Ryan Wong M.D. [id number] f
--- NOTE | 2022-11-08 15:51 | XRR_ITS ---
PROCEDURE INFORMATION: Exam: XR Chest Exam date and time: 11/08/2022 4:26 PM Age: 47 years old Clinical indication: Pain; Chest pressure; Additional info: Cp TECHNIQUE: Imaging protocol: Radiologic exam of the chest. Views: 1 view. COMPARISON: CR XR chest 2V* [id number] 11/17/2019 12:50 PM FINDINGS: Lungs: Unremarkable. No consolidation. Pleural spaces: Unremarkable. No pleural effusion. No pneumothorax. Heart/Mediastinum: Unremarkable. No cardiomegaly. Bones/joints: Unremarkable. XR/XR chest 1V portable [id number] IMPRESSION: No acute findings.
[2022-11-08] MEDS: ondansetron 2 mg/ML SDV 2 mL 4 MG IVP (15:54)
[2022-11-08 16:15] LABS: Add Urine Microscopic? NO; Charge for UA Resulting for Rev
[2022-11-08 16:33] LABS: Glucose Urine UA Norm (Normal); Protein Urine Neg (Negative); Urine Appearance Clear (CLEAR); Urine Color Straw (Yellow); pH Urine 7 (5-7)
[2022-11-08 16:34] LABS: Bilirubin Urine Neg (Negative); Blood Urine Neg (Negative); Ketones Urine 1+ (Negative); Leukocyte Esterase Urine Negative (Negative); Nitrate Urine Negative (Negative); Urobilinogen Urine Norm (Negative)
[2022-11-08 16:43] LABS: Basophils % 0.5 %; Eosinophils # 0.1 10^3/uL (0.0-0.8); Eosinophils % 0.7 %; Hematocrit 39.7 % (37.0-47.0); Hemoglobin 13.4 g/dL (11.5-15.3); Lymphocytes # 1.5 10^3/uL (0.8-4.8); Lymphocytes % 18.4 %; Mean Corpuscular HGB Conc 33.8 g/dL (30.0-36.0); Mean Corpuscular Hemoglobin 32.1 pg (28.0-34.0); Mean Platelet Volume 10.6 fL (7.4-10.4); Monocytes # 0.3 10^3/uL (0.2-0.9); Monocytes % 4.2 %; Nucleated Red Blood Cells % 0 %; Platelet Count 232 10^3/cmm (130-400); Red Blood Count 4.18 10^6/uL (4.1-5.3); Red Cell Distribution Width 12.4 % (12.1-15.1)
[2022-11-08] MEDS: sodium chloride 0.9% 500 ML 999 ML IV (16:52)
[2022-11-08 16:59] LABS: D Dimer 0.34 ug/mIFEU (0-0.59)
[2022-11-08 17:04] LABS: Troponin(5th) Baseline 37 ng/L (0-10)
[2022-11-08 17:14] LABS: Alanine Aminotransferase 18 U/L (0-33); Alkaline Phosphatase 88 U/L (35-105); Anion Gap 14.3 (5-19); Aspartate Amino Transferase 18 U/L (0-32); Blood Urea Nitrogen 8 mg/dL (6-20); Calcium 8.3 mg/dL (8.5-10.5); Carbon Dioxide 22 mmol/L (22-29); Chloride 103 mmol/L (98-107); Glomerular Filtration Rate 76.9 mL/min (90-130); Glucose 72 mg/dL (65-115); Lipase 25 U/L (13-60); Magnesium 1.9 mg/dL (1.7-2.3); NT Pro B Type Natriuretic Pept 122 pg/mL (0-125); Osmolality Calculated 279 mOsm/kg (285-295); Potassium 3.3 mmol/L (3.5-5.1); Sodium 136 mmol/L (136-145); Thyroid Stimulating Hormone 1.52 uIU/mL (0.27-4.20)
[2022-11-08] MEDS: potassium chloride oral liq 20 mEq/15 mL UDC 40 MEQ PO (17:52)
[2022-11-08] MEDS: lidocaine 1% 5 ML in potassium chloride premix 100 ML 52.5 ML IV (17:52)
--- NOTE | 2022-11-08 17:57 | ECG_ITS ---
[facility] Test Date: 2022-11-08 Pat Name: Alma Lee Department: Room: Gender: Female It Generalist: : 1975 Requested By: Benitez Juan Order Number: [id number] Ian MD: Ryan Wong M.D. Measurements Intervals [place] Rate: 88 P: 64 [place]: 114 QRS: 28 QRSD: 89 T: 67 QT: 365 QTc: 443 Interpretive Statements SINUS RHYTHM WITH SHORT [place] INTERVAL Compared to ECG 11/08/2022 15:36:44 Short [place] interval now present Electronically Signed On 11-08-2022 18:02:59 CDT by Ryan Wong M.D. [id number]
[2022-11-08 19:03] LABS: Troponin 5 2HR 103.5 ng/L (0-10); Troponin 5 2HR Delta 66.5 ABS# (0-10)
--- NOTE | 2022-11-08 20:45 | P.HP_ITS ---
Providers/Chief Complaint Admitting Physician: Chiara Morin MD Primary Care Provider: Van Jade MD Chief Complaint: SVT History of Present Illness Alma Lee is a 47 year old female With known history of SVT, hypothyroidism, factor V Leiden carrier, intraductal papilloma of both breast, NSTEMI in 2020 was brought to the hospital today via EMS for another episode of SVT. He said initially this started about 2 and half years ago and with the initial episode of SVT she felt a stick hit her in the chest. Her heart rate has been as high as 200s. Since then she was placed on a beta-constance that she takes religiously every day 25 mg in the morning and 12 point 5 at night. She states she was fine for 2 years however yesterday had an episode of SVT that did go away with vagal maneuvers. She was lying on the side of a pool which she does every weekend. Today this happened again and today's episode was accompanied by severe chest pain that radiated to the shoulder blades she also felt the side of her face quivering and pain going into her jaw. Her heart rate was as high as 240 when EMS arrived however she feels it was higher when they were not there. Her tried to obtain a blood pressure however it was very low. Apparently reports that EMS recorded a systolic of 50. Patient lost consciousness. She follows with Dr. Senior in [facility] for cardiology and would like to continue follow-up there. He has discussed ablation with her in the past however no final decision has been made yet. She does not have any known history of heart disease. She is unsure if she was dehydrated. She lays by her pool every weekend however this weekend it was hot. Patient was given adenosine today and she did convert to sinus rhythm thereafte r. At this time she denies any symptoms. Denies nausea, vomiting, chest pain, diarrhea, abdominal pain. Denies shortness of breath. Medications/Allergies Home Medications Medication Instructions Recorded Confirmed Last Taken Type ondansetron HCl 4 mg tablet 4 mg PO Q8H PRN nausea and 08/28/19 11/08/22 1 Day Ago Rx (Zofran) vomiting #30 tabs ~04/08/21 famotidine 20 mg tablet 40 mg PO BID #30 tabs 11/20/19 11/08/22 04/08/21 Rx multivitamin 1 tab PO DAILY 04/07/21 11/08/22 1 Day Ago History ~04/08/21 dicyclomine 10 mg capsule 10 mg PO TID PRN Abdominal 04/22/21 11/08/22 Unknown History Discomfort ibuprofen 800 mg tablet 800 mg PO Q8H PRN Pain 05/26/21 11/08/22 Unknown History lorazepam 0.5 mg tablet (Ativan) 0.5 mg PO DAILY PRN anxiety #30 11/03/21 11/08/22 Unknown Rx tabs metformin 500 mg tablet 500 mg PO DAILY #30 tabs 01/05/22 11/08/22 11/07/22 Rx vilazodone 40 mg tablet (Viibryd) 40 mg PO DAILY #90 tabs 03/16/22 11/08/22 Unknown Rx atorvastatin 20 mg tablet 20 mg PO DAILY 05/27/22 11/08/22 Unknown History estradiol 0.01% (0.1 mg/gram) See Rx Instructions .Route 09/22/22 11/08/22 11/05/22 Rx vaginal cream .COMPLEX #43 grams levothyroxine 112 mcg tablet 112 mcg PO DAILY 11/08/22 11/08/22 11/08/22 History (Euthyrox) metoprolol tartrate 25 mg tablet 25 mg PO DIRECTED 11/08/22 11/08/22 11/08/22 History pantoprazole 40 mg tablet,delayed 40 mg PO 2XD 11/08/22 11/08/22 Unknown History release Allergies Allergy/AdvReac Type Severity Reaction Status Date / Time tolmetin [From Tolectin] Allergy Severe anaphylaxis Verified 11/08/22 15:36 PFSH Acute PFSH: Medical History Calculus of kidney Chronic cystitis Esophagitis determined by endoscopy Factor V Leiden carrier History of heart attack 01/02/2021 - Nonstemi, nonST elevated miocardial infaction. Hypothyroid (~2013) Intraductal papilloma of both breasts both ducts removed No pertinent past medical history neghx: htn,dm,dvt/pe PCP: Dr. Cervantes Sphincter of Oddi dysfunction Surgical History H/O bladder repair surgery (~04/09/21) 04/09/2021- anterior colporrhaphy augmented with allograft, single incision mid urethral sling, posterior colporrhaphy and cystoscopy performed by Dr. Diamond at [facility] H/O rectocele repair History of biliary duct stent placement (~2018) bilateral removal Hx of breast augmentation (~2001) Hx of laparoscopy (~2008) treatment of right ovarian chocolate cyst Hx of shoulder surgery (~1991) R shoulder Mammary duct ectasia (~2014) S/P cholecystectomy (~2014) S/P hysterectomy (~2001) prolapse--- severe; cystocele and rectocele repair Status post bladder repair (~2001) Family History Mother Hypertension Father Hypertension Heart disease Hypercholesteremia Grandmother Diabetes Maternal Heart disease Maternal Grandfather Heart disease Maternal Hypercholesteremia Maternal and Paternal Stroke Maternal Family/Other Breast cancer Paternal Aunt--dx age 45 Denies family history of Colon cancer Ovarian cancer Uterine cancer Thyroid disease Vitals/I&O/Wt Last Vital Signs Temp 97.7 F 11/08/22 20:12 Pulse 81 11/08/22 20:12 Resp 17 11/08/22 20:12 BP 133/91 11/08/22 20:12 Pulse Ox 96 11/08/22 20:12 O2 Del Method Room Air 11/08/22 20:12 11/08/22 11/08/22 11/08/22 06:59 14:59 22:59 Intake Total 657 / 657 Balance 657 / 657 Weight last 48 hrs Weight 65.771 kg Physical Exam Narrative: General: Alert oriented x3, patient seen laying in bed appearing comfortable HEENT: Normocephalic, atraumatic, EOMI, breathing normally Cardio: Regular rate rhythm, normal S1-S2, Respiratory: Good bilateral air entry, no wheezes no rhonchi appreciated GI: Abdomen soft, nontender, nondistended, bowel sounds + Behavior: Appropriate and cooperative Extremities: Pulses 2+, no edema, no cyanosis Data 11/08/22 16:31 11/08/22 16:31 A&P Assessment and plan (1) Supraventricular tachycardia: (2) Syncope: (3) JEFFERY (generalized anxiety disorder): (4) PSVT (paroxysmal supraventricular tachycardia): (5) Hypothyroid: (6) Factor V Leiden carrier: (7) Gastroesophageal reflux disease: Plan #Supraventricular tachycardia, unstable #Symptomatic, loss of consciousness, severe chest pain #NSTEMI most likely demand ischemia however type I cannot be ruled out #Hypothyroidism #Hyperlipidemia #Hypokalemia #Generalized anxiety disorder -Delta troponin at 6 hours is 78.2. Heart rate was greater than 240 at 1 point. This could be related to demand ischemia and unstable SVT with loss of consciousness and severe chest pain and symptoms can be explained however underlying coronary artery disease cannot be excluded at this point. ? I will start patient on aspirin 81 daily, placed on therapeutic Lovenox. Continue atorvastatin ? Check lipid profile, hemoglobin A1c, TSH ? Replete electrolytes. Potassium noted to be 3.3 in ER. Will replete ? Magnesium 1.9 in ER. 1 g IV given ? Recheck magnesium and potassium in AM. Is possible that dehydration may have caused her episode today since it has been quite hot and she has been outdoors. ? We will consult cardiology.. Patient has had a stress test 2 years ago 2020 with her first episode of SVT and it was completely normal. She reports echo being unremarkable as well. We do not have those records however. She follows with cardiology in [facility]. We will have to request records. She would like to follow-up with her inside sales account representative at discharge. ? Consider Holter monitor at discharge. ? I will hold off on ordering another stress test at this time until recently seen by cardiology. Discussed with patient and she is in agreement with the above plan. ? N.p.o. at midnight except medications ? Continue home metoprolol 25 in a.m., 12.5 in p.m. ? Hold off on metformin ? Continue Protonix, famotidine. -We will also place placed on fluids normal saline 125 cc/h. Full code On therapeutic Lovenox. Attestations Medical Necessity Statement*: Greater than 2 midnight stay for management and work-up of SVT, NSTEMI. Coding Level of Care Code G0425 (30 min) TH Encounter Time (min): 45 Patient seen via Telehealth in the acute care setting (hospital or ED location) by agreement and consent of patient or patient client services representative. Telehealth technology used during the visit includes video and audio. This patient encounter is appropriate and reasonable under the circumstances given the patient?s particular presentation at this time. The patient has been advised of the potential risks and limitations of this mode of treatment (including but not limited to the absence of in-person examination at this time) and has agreed to be treated by an off-site physician for this visit. If deemed clinically necessary from this telehealth visit, or if condition or consent for telehealth visit changes, an in-person visit will be arranged. For this encounter, total time for the origination of telehealth care on this date is as shown. Diagnoses Supraventricular tachycardia I47.1 Syncope R55 JEFFERY (generalized anxiety disorder) F41.1 PSVT (paroxysmal supraventricular tachycardia) I47.1 Hypothyroid E03.9 Factor V Leiden carrier D68.51 Gastroesophageal reflux disease K21.9
[2022-11-08 21:29] LABS: Estmated Average Glucose 91; Hemoglobin A1C 4.8 % (4.0-6.0)
[2022-11-08 21:34] LABS: Thyroid Stimulating Hormone 1.78 uIU/mL (0.27-4.20)
--- NOTE | 2022-11-08 21:51 | ECG_ITS ---
[facility] Test Date: 2022-11-09 Pat Name: Alma Lee Department: Room: 108 Gender: Female Staffing Branch Manager: : 1975 Requested By: Benitez Juan Order Number: [id number] Ian MD: Ryan Wong M.D. Measurements Intervals [place] Rate: 57 P: 66 [place]: 151 QRS: 51 QRSD: 93 T: 59 QT: 416 QTc: 405 Interpretive Statements SINUS BRADYCARDIA Compared to ECG 11/08/2022 17:57:29 Sinus rhythm no longer present Short [place] interval no longer present Electronically Signed On 11-09-2022 17:29:16 CDT by Ryan Wong M.D. [id number]
[2022-11-08] MEDS: acetaminophen 325 mg Tablet 650 MG PO (22:03)
[2022-11-08] MEDS: sodium chloride 0.9% 1,000 ML 125 ML IV (22:05)
[2022-11-08 22:42] LABS: Troponin 5 6HR Delta 78.2 ng/L (0-12)
[2022-11-08 22:43] LABS: Troponin 5 6HR 115.2 ng/L (0-10)
--- NOTE | 2022-11-08 23:19 | PC.NURSE ---
Made aware of 6hr troponin. Nurse went in with via telehealth to see patient. to put in new orders and speak with Cardiology regarding the case.
[2022-11-09] VITALS (27 sets, daily range): BP systolic 97–131; BP diastolic 69–94; PULSE 63–81; RESP 13–24; TEMP 36.4–36.9; O2SAT 95–100
[2022-11-09] MEDS: enoxaparin 100 mg/mL Syringe 70 MG SUBCUT (00:02)
[2022-11-09] MEDS: aspirin 81 mg EC Tablet PO (00:55)
[2022-11-09 04:10] LABS: Basophils % 0.5 %; Eosinophils # 0.2 10^3/uL (0.0-0.8); Eosinophils % 1.9 %; Hematocrit 35.6 % (37.0-47.0); Hemoglobin 11.9 g/dL (11.5-15.3); Lymphocytes # 2.7 10^3/uL (0.8-4.8); Lymphocytes % 34.2 %; Mean Corpuscular HGB Conc 33.4 g/dL (30.0-36.0); Mean Corpuscular Volume 95.7 fl (81-99); Mean Platelet Volume 11.1 fL (7.4-10.4); Monocytes # 0.4 10^3/uL (0.2-0.9); Neutrophils # 4.53 10^3/uL (1.8-7.7); Nucleated Red Blood Cells % 0 %; Platelet Count 245 10^3/cmm (130-400); Red Blood Count 3.72 10^6/uL (4.1-5.3); Red Cell Distribution Width 12.4 % (12.1-15.1); White Blood Count 7.8 10^3/uL (4.0-10.0)
[2022-11-09 04:29] LABS: Anion Gap 10.8 (5-19); Blood Urea Nitrogen 6 mg/dL (6-20); Calcium 8.3 mg/dL (8.5-10.5); Carbon Dioxide 26 mmol/L (22-29); Chloride 105 mmol/L (98-107); Glomerular Filtration Rate 107.2 mL/min (90-130); Glucose 92 mg/dL (65-115); Magnesium 2.1 mg/dL (1.7-2.3); Osmolality Calculated 283 mOsm/kg (285-295); Potassium 3.8 mmol/L (3.5-5.1); Sodium 138 mmol/L (136-145)
[2022-11-09] MEDS: sodium chloride 0.9% 1,000 ML 125 ML IV (06:03)
[2022-11-09] MEDS: metoprolol tartrate 25 mg Tablet PO (06:04)
--- NOTE | 2022-11-09 06:43 | P.CONIM_ITS ---
Providers/Reason For Consult Consulting Physician/Specialty*: Ryan Wong MD/ Cardiology Reason for Consult*: Troponin elevation/ SVT Requesting Physician: Dr Morin Attending Physician: Chiara Morin MD Primary Care Provider: Van Jade MD History of Present Illness History of Present Illness Alma Lee is a 47 year old female with past medical history of hypothyroidism, SVT who presented to hospital after having severe substernal chest pain. She was found to have supraventricular tachycardia by EMS. She was given adenosine and it resolved the episode. She had some chest discomfort in the last 1 week also. Her troponin initially was 37 and it trended up to 115 at 6 hours. EKG shows normal sinus rhythm. She also had a passing out spell. Review of Systems Narrative: CONSTITUTIONAL: No fever chills weight loss or gain or night sweats. [] HEENT: Normocephalic, atraumatic.[] RESPIRATORY: No cough, sputum, hemoptysis or wheezing.[] CARDIOVASCULAR: Chest pain GI: no nausea vomiting diarrhea. [] COMMUNITY SERVICE DIRECTOR: No numbness, tingling, weakness or loss of function in any part of the body. [] MUSCULOSKELETAL: No knee or joint pain or rashes. [] Medications/Allergies Home Medications Medication Instructions Recorded Confirmed Last Taken Type ondansetron HCl 4 mg tablet 4 mg PO Q8H PRN nausea and 08/28/19 11/08/22 1 Day Ago Rx (Zofran) vomiting #30 tabs ~04/08/21 famotidine 20 mg tablet 40 mg PO BID #30 tabs 11/20/19 11/08/22 04/08/21 Rx multivitamin 1 tab PO DAILY 04/07/21 11/08/22 1 Day Ago History ~04/08/21 dicyclomine 10 mg capsule 10 mg PO TID PRN Abdominal 04/22/21 11/08/22 Unknown History Discomfort ibuprofen 800 mg tablet 800 mg PO Q8H PRN Pain 05/26/21 11/08/22 Unknown History lorazepam 0.5 mg tablet (Ativan) 0.5 mg PO DAILY PRN anxiety #30 11/03/21 11/08/22 Unknown Rx tabs metformin 500 mg tablet 500 mg PO DAILY #30 tabs 01/05/22 11/08/22 11/07/22 Rx vilazodone 40 mg tablet (Viibryd) 40 mg PO DAILY #90 tabs 03/16/22 11/08/22 Unknown Rx atorvastatin 20 mg tablet 20 mg PO DAILY 05/27/22 11/08/22 Unknown History estradiol 0.01% (0.1 mg/gram) See Rx Instructions .Route 09/22/22 11/08/22 11/05/22 Rx vaginal cream .COMPLEX #43 grams levothyroxine 112 mcg tablet 112 mcg PO DAILY 11/08/22 11/08/22 11/08/22 History (Euthyrox) metoprolol tartrate 25 mg tablet 25 mg PO DIRECTED 11/08/22 11/08/22 11/08/22 History pantoprazole 40 mg tablet,delayed 40 mg PO 2XD 11/08/22 11/08/22 Unknown History release Allergies Allergy/AdvReac Type Severity Reaction Status Date / Time tolmetin [From Tolectin] Allergy Severe anaphylaxis Verified 11/08/22 15:36 Current Medications Generic Name Dose Route Start Last Admin Trade Name Freq PRN Reason Stop Dose Admin Acetaminophen 650 mg 11/08/22 20:46 11/08/22 22:03 Acetaminophen 325 Mg Tablet PO 650 mg Q6H PRN Administration Mild/Mod Pain Or Temp >/= 101 Enoxaparin Sodium 70 mg 11/08/22 23:45 11/09/22 00:02 Enoxaparin 100 Mg/Ml Syringe 1 mg/kg (70 mg) 70 mg SUBCUT Administration Q12H DAVID Sodium Chloride 1,000 mls @ 125 mls/hr 11/08/22 21:00 11/09/22 06:03 Sodium Chloride 0.9% IV 125 mls/hr .Q8H DAVID Administration Metoprolol Tartrate 25 mg 11/09/22 06:00 11/09/22 06:04 Metoprolol Tartrate 25 Mg Tablet PO 25 mg QAM DAVID Administration PFSH Acute PFSH: Medical History Calculus of kidney Chronic cystitis Esophagitis determined by endoscopy Factor V Leiden carrier History of heart attack 01/02/2021 - Nonstemi, nonST elevated miocardial infaction. Hypothyroid (~2013) Intraductal papilloma of both breasts both ducts removed No pertinent past medical history neghx: htn,dm,dvt/pe PCP: Dr. Cervantes Sphincter of Oddi dysfunction Surgical History H/O bladder repair surgery (~04/09/21) 04/09/2021- anterior colporrhaphy augmented with allograft, single incision mid urethral sling, posterior colporrhaphy and cystoscopy performed by Dr. Diamond at [facility] H/O rectocele repair History of biliary duct stent placement (~2018) bilateral removal Hx of breast augmentation (~2001) Hx of laparoscopy (~2008) treatment of right ovarian chocolate cyst Hx of shoulder surgery (~1991) R shoulder Mammary duct ectasia (~2014) S/P cholecystectomy (~2014) S/P hysterectomy (~2001) prolapse--- severe; cystocele and rectocele repair Status post bladder repair (~2001) Family History Mother Hypertension Father Hypertension Heart disease Hypercholesteremia Grandmother Diabetes Maternal Heart disease Maternal Grandfather Heart disease Maternal Hypercholesteremia Maternal and Paternal Stroke Maternal Family/Other Breast cancer Paternal Aunt--dx age 45 Denies family history of Colon cancer Ovarian cancer Uterine cancer Thyroid disease Vitals/I&O/Wt Last Vital Signs Temp 97.5 F L 11/09/22 03:44 Pulse 69 11/09/22 04:37 Resp 21 H 11/09/22 03:44 BP 103/70 11/09/22 03:44 Pulse Ox 97 11/09/22 03:44 O2 Del Method Room Air 11/09/22 03:44 11/08/22 11/08/22 11/09/22 14:59 22:59 06:59 Intake Total 657 / 657 995.833 / 1652.833 Balance 657 / 657 995.833 / 1652.833 Weight last 48 hrs Weight 145 lb Physical Exam Narrative: GENERAL: Patient is alert, awake and oriented x3. [] NECK: No jugular vein distension. [] HEENT: No cyanosis. No icterus. No pallor. [] HEART: Regular S1 and S2. No murmur, rub or gallop. [] LUNGS: Clear to auscultate bilaterally. [] CENTRAL NERVOUS SYSTEM: Grossly nonfocal. [] EXTREMITIES: Lower extremities with no edema Data 11/09/22 02:31 11/09/22 02:31 A&P Assessment and plan (1) Supraventricular tachycardia: (2) Syncope: (3) Elevated troponin: Plan Patient has presented with SVT. However had severe typical chest pain symptoms. Troponin also went up significantly. It could be related to demand ischemia. However ischemic testing is indicated. She does not want to have stress test done. We will proceed with coronary angiogram. N.p.o. for now. We will uptitrate metoprolol at time of discharge. Event monitor at time of discharge as well. Patient will follow-up with her raisin separator operator in [facility]. She will benefit from SVT ablation. Thank you for involving us with care of this patient. We will continue to follow. Please call with questions. Consult Attestations Medical Necessity Statement: Care expected to cross 2 midnights. Coding Level of Care Code Acute Code for [facility] Diagnoses Supraventricular tachycardia I47.1 Syncope R55 Elevated troponin R77.8
--- NOTE | 2022-11-09 08:28 | XACV_ITS ---
Exam Room: [facility] Ht: 173 cm Wt: 66 kg BSA: 1.78 m2 Gender: Female : 1975 Any Known Allergies: Other Exam Priority: Routine Procedure(s): Procedure Description: Diagnostic procedure Procedure Description: Left Heart Catheterization Procedure Description: Left ventriculography Procedure Description: Coronary Angiography Diagnostic Cath Status: Urgent Diagnostic Findings * INDICATION: Chest pain/SVT/ Troponin elevation. * No significant disease noted in the Left Main, Left Anterior Descending, Right, or Circumflex coronary arteries. 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 * Coronary angiography shows right dominance. Conclusions 1. No significant disease noted in the Left Main, Left Anterior Descending, Right, or Circumflex coronary arteries. 2. 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 3. Normal left ventricular systolic function. Ejection fraction of 55%. Recommendations * Uptitrate beta blockers. * Outpatient cardiology follow up in 2-4 weeks. Interventional RX Recommendation: medical therapy and/or counseling Diagnostic RX Recommendation: medical therapy and/or counseling Ventriculography Ejection Fraction: 55.0 % Pressures Phase:Rest AO : 118 / 70 ( 93 ) @ 10:59:00 AM 95 / 70 ( 82 ) @ 11:00:00 AM 91 / 81 ( 84 ) @ 11:03:00 AM 122 / 75 ( 98 ) @ 11:07:00 AM 121 / 74 ( 98 ) @ 11:07:00 AM LV : 104 / -15 / 6 @ 11:06:00 AM 113 / -7 / 13 @ 11:07:00 AM 112 / -6 / 13 @ 11:07:00 AM Valves Phase:DefaultPhase AV : 0.0 @ 10:30:49 AM AV Mean Gradient: 0.0 @ 10:30:49 AM 0.0 @ 10:30:49 AM Clinical Evaluation EBL: 5mL-10mL Procedural Details Procedure Consent Obtained. Current Diagnosis : NSTEMI. Pre-Procedure Time Out. Identified patient by full name and date of as verbalized by the patient/guarantor. Does the consent match the physician's order: Yes. Accurate & Complete Informed Consent: Yes. Inpatient/Outpatient History & Physical on Chart: Yes. If H&P is completed, is and addenduem needed: No; If yes, is the addendum complete: N/A. Visualize and Verify Site with Patient/Guarantor: N/A. Relevant Radiology Images available: Yes. Pre-op teaching completed and patient verbalized understanding. The risks, benefits, and alternatives of sedation and/or procedure were discussed by physician. The patient agrees to continue. Procedure started. Physician arrived. [facility] Clinical Fraility Score: 2: Well. Study Assistant Indications: ACS > 24 hours. Chest Pain Symptom Assessment: Atypical Angina. Correct patient, site and procedure confirmed by cath team. Current diagnosis: NSTEMI. PERRLA. Strong, equal hand offbearer bilaterally. Lungs clear x 5 lobes. IV Site on Arrival: 18 gauge in the right anticubital. IV Fluids: 0.9% NaCl at KVO. 400 mL infused prior to tanbark laborer. Pre Procedural Pulses: right radial was 1+. Oxygen started at 2liters/min via nasal canula. bilateral groins was prepped with chloroprep then draped in the usual sterile fashion. Baseline sample Acquired. HR: 69 BPM. Ultrasound used to check the radial artery. Physician scrubbed in. Immediate Pre-Procedure Time Out. Correct Patient: Yes; Correct Procedure: Yes; Correct Site: Yes; Correct Patient Position: Yes; Correct Supplies: Yes; Dried Flammable Prep: Yes; Blood Products Available: N/A;. Lidocaine 1% infiltrated to the right groin. Arterial access obtained with micropuncture set. A 5 chinese JL4 catheter in over wire. Multiple views taken of left coronary artery. Catheter removed over the standard wire. A 5 chinese JR4 catheter in over wire. Multiple views taken of right coronary artery. Catheter removed over the standard wire. A 5 chinese Angled Pig catheter in over wire. EDP Sample taken: LV 104/-16,6; HR: 72 BPM; SpO2: 100%. LV gram performed in MARX @ 10 mL/second for a total of 30 mL. EDP Sample taken: LV 113/-8,13; HR: 75 BPM; SpO2: 100%. Pullback taken: LV 112/-7,13; AO 122/75(98); Mean: 0mmHg, Peak to Peak: 0mmHg, SEP: 6sec/min; HR: 77 BPM; SpO2: 100%. Catheter removed over the standard wire. A Right femoral angiogram was performed to determine safe placement of closure device. Physician scrubbed out. A Manual Compression was successful obtaining hemostatsis at the Right Femoral artery insertion site. Post Procedure: Pulses reassessed and unchanged. PERRLA. Strong, equal hand offbearer bilaterally. No VTE prophylaxis required. Medication's Wasted: Heparin = 1000 units. Total IV fluids: 40 mL. Post-op diagnosis: Non-obstructive CAD. Complications: None. Estimated blood loss: 5mL-10mL. Responsiveness - Normal response to verbal stimuli; alert and oriented, PERRLA. Airway - Unaffected, no intervention required; spontaneous ventilation. Circulation: W/N/L, pulses unchanged. Nausea/Vomiting: No. Procedure completed. Vital chart was stopped. Access Site Site: Right Femoral artery Sheath Size: 5 Fr Hemostasis Method: Manual Compression Hemostasis Success: Successful Procedure Medications Start: 9:43 AM Stop: 9:43 AM Medication: Versed 1 mg and Fentanyl 25 mcg Amount: 1 Route: I.V. Start: 9:46 AM Stop: 9:46 AM Medication: Versed Amount: 1 mg Route: I.V. Start: 9:46 AM Stop: 9:46 AM Medication: Fentanyl Amount: 50 mcg Route: I.V. Start: 9:55 AM Stop: 9:55 AM Medication: Versed Amount: 1 mg Route: I.V. Start: 10:01 AM Stop: 10:01 AM Medication: Versed 1 mg and Fentanyl 25 mcg Amount: 1 Route: I.V. I, the attending physician, have reviewed and verified all procedure medications. Yes, all medications given per verbal order History/Risk Factors Hypertension: No Dyslipidemia: No Peripheral Arterial Disease (PAD): No Myocardial Infarction (LA): No Obesity: No Renal Disease: No Tobacco Use: Never Prior Interventions PCI: No CABG: No Valve Surgery: No Report Signatures Finalized by Ryan Wong MD on 11/09/2022 11:10 AM
[2022-11-09] MEDS: atorvastatin 40 mg Tablet PO (09:29)
[2022-11-09] MEDS: famotidine 20 mg Tablet 40 MG PO (09:30)
[2022-11-09] MEDS: multivitamin therapeutic Tablet 1 TAB PO (09:30)
[2022-11-09] MEDS: levothyroxine 112 mcg Tablet PO (09:30)
[2022-11-09] MEDS: pantoprazole DR 40 mg Tablet PO (09:30)
--- NOTE | 2022-11-09 09:38 | PC.NURSE ---
to cardiac mineral ore processing labourer at this time
--- NOTE | 2022-11-09 09:50 | P.HPUD_ITS ---
Surgery/Procedure H&P Update DATE OF PROCEDURE: November 09, 2022 DATE H&P PERFORMED: 11/09/22 H&P UPDATE INFORMATION: I have reviewed H&P completed within last 30 days, I have examined patient prior to procedure and No changes to prior documentation PREOP DIAGNOSIS: Troponin elevation/ Chest pain PRIMARY INDICATION FOR PROCEDURE: Troponin elevation/ Chest pain PLANNED PROCEDURE: Left heart cath with possible percutaneous coronary intervention PATIENT REASSESSED PRIOR TO SEDATION, WITH NO CHANGE NOTED: Yes PHYSICAL EXAM: alert, oriented x 3, clear to auscultation bilaterally and regular rate & rhythm AIRWAY EVAL/ANESTHESIA PLAN: normal airway, ASA III, Local Anesthesia, Risks, b enefits & alternatives of sedation and/or procedure discussed and Patient agrees to continue as planned ADDITIONAL INFORMATION: Moderate sedation
--- NOTE | 2022-11-09 11:45 | PM.DCS ---
Discharge Providers Date of Admission: 11/08/22 19:38 Date of Discharge: November 09, 2022 Attending Provider at Admission: Chiara Morin MD Attending Provider at Discharge: Eugene Montiel MD Primary Care Provider: Van Jade MD Diagnoses at Discharge Discharge Diagnosis (1) Supraventricular tachycardia: Status: Acute (2) Syncope: Status: Acute (3) Elevated troponin: Status: Acute Reason for Visit Reason for Visit: SVT Hospital Course Hospital Course 47-year female who was brought in for symptomatic SVT, patient carries history of SVT seeing Dr. Burrell at [facility] there was discussion for ablation however because of COVID pandemic this was postponed, significant delta troponin noted on admission, patient went for coronary angiogram which was unremarkable as per Dr. Griggs. Her potassium was repleted with p.o. regimen potassium on admission was 3.3 she was given 60 mEq of KCl p.o. regimen, magnesium is above 2, patient was examined after her coronary angiogram, her femoral sheath has been pulled already, patient does not complain of chest pain or shortness of breath. She is in sinus rhythm heart rate around 70s, calcium 8.3, family is at the bedside, patient will be discharged on increased dose of metoprolol 25 mg twice daily and Holter monitor she will follow-up with Dr. Burrell for SVT ablation, D-dimer unremarkable, TSH normal, EF 55%, patient stating that she drinks alcohol occasionally/tequila Coronary angiogram Conclusions ? 1. No significant disease noted in the Left Main, Left Anterior Descending, Right, or Circumflex coronary arteries. ? 2. 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 ? 3. Normal left ventricular systolic function. Ejection fraction of 55%. Physical Exam Narrative: Patient awake and alert Chest pain-free Abdomen soft S1, S2 Nonfocal neuro exam Discharge Data Studies Completed and Pending Completed Studies During Hospitalization Category Date Time Status BENCH [facility]OLDER request for service Routine Exams 11/09/22 08:28 Completed XR chest 1V portable [id number] Stat Exams 11/08/22 15:51 Completed Pending at discharge Category Date Time Status Sestamibi Stress Test Request Routine Exams 11/09/22 06:00 Stop Req CV. echo complete* [id number] Routine Ultrasound 11/09/22 20:52 Taken Radiology Impressions Chest X-Ray 11/08/22 15:51 IMPRESSION: No acute findings. Laboratory Results WBC 7.8 10^3/uL (4.0-10.0) 11/09/22 02:31 RBC 3.72 10^6/uL (4.1-5.3) L 11/09/22 02:31 Hgb 11.9 g/dL (11.5-15.3) 11/09/22 02:31 Hct 35.6 % (37.0-47.0) L 11/09/22 02:31 MCV 95.7 fl (81-99) 11/09/22 02:31 MCH 32.0 pg (28.0-34.0) 11/09/22 02:31 MCHC 33.4 g/dL (30.0-36.0) 11/09/22 02:31 RDW 12.4 % (12.1-15.1) 11/09/22 02:31 Plt Count 245 10^3/cmm (130-400) 11/09/22 02:31 MPV 11.1 fL (7.4-10.4) H 11/09/22 02:31 Neut % (Auto) 58.0 % 11/09/22 02:31 Lymph % (Auto) 34.2 % 11/09/22 02:31 [place] % (Auto) 5.0 % 11/09/22 02:31 Eos % (Auto) 1.9 % 11/09/22 02:31 Baso % (Auto) 0.5 % 11/09/22 02:31 Neut # (Auto) 4.53 10^3/uL (1.8-7.7) 11/09/22 02:31 Lymph # (Auto) 2.7 10^3/uL (0.8-4.8) 11/09/22 02:31 [place] # (Auto) 0.4 10^3/uL (0.2-0.9) 11/09/22 02:31 Eos # (Auto) 0.2 10^3/uL (0.0-0.8) 11/09/22 02:31 Baso # (Auto) 0.0 10^3/uL (0.0-0.1) 11/09/22 02:31 Nucleated RBC % (auto) 0 % 11/09/22 02:31 Nucleated RBCs # 0.0 /100WBC 11/09/22 02:31 D-Dimer 0.34 ug/mIFEU (0-0.59) 11/08/22 16:31 Sodium 138 mmol/L (136-145) 11/09/22 02:31 Potassium 3.8 mmol/L (3.5-5.1) 11/09/22 02:31 Chloride 105 mmol/L (98-107) 11/09/22 02:31 Carbon Dioxide 26 mmol/L (22-29) 11/09/22 02:31 Anion Gap 10.8 (5-19) 11/09/22 02:31 BUN 6 mg/dL (6-20) 11/09/22 02:31 Creatinine 0.6 mg/dL (0.5-0.9) 11/09/22 02:31 GFR Calculation 107.2 mL/min (90-130) 11/09/22 02:31 Glucose 92 mg/dL (65-115) 11/09/22 02:31 Estimat Average Glucose 91 11/08/22 16:31 Hemoglobin A1c 4.8 % (4.0-6.0) 11/08/22 16:31 Calculated Osmolality 283 mOsm/kg (285-295) L 11/09/22 02:31 Calcium 8.3 mg/dL (8.5-10.5) L 11/09/22 02:31 Magnesium 2.1 mg/dL (1.7-2.3) 11/09/22 02:31 Total Bilirubin 1.0 mg/dL (0.15-1.2) 11/08/22 16:31 AST 18 U/L (0-32) 11/08/22 16:31 ALT 18 U/L (0-33) 11/08/22 16:31 Alkaline Phosphatase 88 U/L (35-105) 11/08/22 16:31 Troponin T Baseline 37 ng/L (0-10) H 11/08/22 16:31 Troponin T 120 Minute 103.5 ng/L (0-10) H 11/08/22 18:30 Delta Troponin T 66.5 ABS# (0-10) H* 11/08/22 18:30 Troponin T Hi Sens 6Hr 115.2 ng/L (0-10) H 11/08/22 22:00 Troponin T Hi Sens 6Hr Delta 78.2 ng/L (0-12) H* 11/08/22 22:00 NT-Pro-B Natriuret Pep 122 pg/mL (0-125) 11/08/22 16:31 Total Protein 6.0 g/dL (6.6-8.7) L 11/08/22 16:31 Albumin 4.0 g/dL (3.5-5.2) 11/08/22 16:31 Globulin 2.0 g/dL (1.3-4.6) 11/08/22 16:31 Lipase 25 U/L (13-60) 11/08/22 16:31 TSH 1.78 uIU/mL (0.27-4.20) 11/08/22 18:30 Urine Color Straw (Yellow) 11/08/22 16:03 Urine Appearance Clear (CLEAR) 11/08/22 16:03 Urine pH 7 (5-7) 11/08/22 16:03 Ur Specific [place] 1.000 (1.005-1.030) L 11/08/22 16:03 Urine Protein Neg (Negative) 11/08/22 16:03 Urine Glucose (UA) Norm (Normal) 11/08/22 16:03 Urine Ketones 1+ (Negative) H 11/08/22 16:03 Urine Blood Neg (Negative) 11/08/22 16:03 Urine Nitrate Negative (Negative) 11/08/22 16:03 Urine Bilirubin Neg (Negative) 11/08/22 16:03 Urine Urobilinogen Norm mg/dL (Negative) 11/08/22 16:03 Ur Leukocyte Esterase Negative (Negative) 11/08/22 16:03 Vitals Last Vital Signs Temp 97.5 F L 11/09/22 03:44 Pulse 79 11/09/22 08:00 Resp 13 11/09/22 08:00 BP 118/85 11/09/22 08:00 Pulse Ox 100 11/09/22 08:00 O2 Del Method Room Air 11/09/22 08:00 Discharge Plan Discharge Patient Disposition: Home Condition: Stable Prescriptions: New metoprolol tartrate 25 mg Tablet 25 mg PO BID Qty: 120 3RF Continued famotidine 20 mg tablet 40 mg PO BID Qty: 30 3RF ibuprofen 800 mg tablet 800 mg PO Q8H PRN (Reason: Pain) dicyclomine 10 mg capsule 10 mg PO TID PRN (Reason: Abdominal Discomfort) atorvastatin 20 mg tablet 20 mg PO DAILY multivitamin Tablet 1 tab PO DAILY lorazepam [Ativan] 0.5 mg tablet 0.5 mg PO DAILY PRN (Reason: anxiety) Qty: 30 1RF ondansetron HCl [Zofran] 4 mg tablet 4 mg PO Q8H PRN (Reason: nausea and vomiting) Qty: 30 0RF metformin 500 mg tablet 500 mg PO DAILY Qty: 30 3RF vilazodone [Viibryd] 40 mg tablet 40 mg PO DAILY Qty: 90 3RF Rx Instructions: must administer with a meal/food estradiol 0.01 % (0.1 mg/gram) cream See Rx Instructions .ROUTE .COMPLEX Qty: 43 3RF Dose Instruction: APPLY 1 GRAM VAGINALLY 2 TO THREE TIMES A WEEK Rx Instructions: APPLY 1 GRAM VAGINALLY 2 TIMES A WEEK Euthyrox 112 mcg tablet 112 mcg PO DAILY pantoprazole 40 mg tablet,delayed release (DR/EC) 40 mg PO 2XD Discontinued metoprolol tartrate 25 mg Tablet 25 mg PO DIRECTED Rx Instructions: 25mg in am and 12.5mg in evening Discharge Orders: Discharge Order (Routine); Ordered 11/09/22 Ordered By: Eugene Montiel Other Ambulatory Orders: ECG holter monitor 14 Days (Routine) Timeframe: 2 Weeks Facility: [facility] - Location: Radiology Ordered By: Eugene Montiel Referrals: Koffi Cervantes MD [Physician] - Ryan Wong M.D [Physician] - 2 weeks Patient Instructions: Opioid Safety Discharge Attestations Time Spent in Discharge Care*: greater than 30 min Quality Metrics Clinical Quality Measures [ No reported AMI, CVA or VTE this stay] Coding Level of Care Code Acute Code for g Fwd Diagnoses Supraventricular tachycardia I47.1 Syncope R55 Elevated troponin R77.8
--- NOTE | 2022-11-09 12:01 | PC.NURSE ---
received from cardiac labor trainer at 1035 via bed.report received.pt is awake and alert.denies pain.sr-sb on monitor.right femoral arterial sheath had been pulled by labor trainer staff.right groin drsg is dry and intact.no hematoma noted.right leg is warm to touch and with brisk capillary refill.palpable dp pulse noted.instructed to notify staff for any bleeding,numbness,pain,sob,or for any concerns at all.pt verb understanding of instructions.
[2022-11-09] MEDS: potassium chloride ER 20 mEq Tablet PO (12:26)
--- NOTE | 2022-11-09 19:00 | PC.NURSE ---
pt had bedrest for 6 hours after sheath pulled.ambulated in ruggiero.vss.no hematoma noted.discharge instructions given and explained.pt verb understanding of instruction.discharged at 1730 via w/c to exit.spouse to drive pt home.
--- NOTE | 2022-11-09 20:52 | USCV_ITS ---
Alma Lee Age: 47 Gender: F : 1975 Exam Date: 11/09/2022 07:07 Ordering Phys: Chiara Morin MD Technologist: Nicolas Nash [place] [facility] [place]: chest pain BP: 118 / 76 HR: 69 Rhythm: Sinus Technical Quality: Adequate MEASUREMENTS (Male / Female) Normal Values 2D ECHO LV Diastolic Diameter PLAX 4.1 cm 4.2 - 5.9 / 3.9 - 5.3 cm LV Systolic Diameter PLAX 2.5 cm IVS Diastolic Thickness 1.1 cm 0.6 - 1.0 / 0.6 - 0.9 cm IVS Systolic Thickness 1.5 cm LVPW Diastolic Thickness 1.3 cm 0.6 - 1.0 / 0.6 - 0.9 cm LVPW Systolic Thickness 1.2 cm LVOT Diameter 2.0 cm LV Ejection Fraction 2D Teich 70.7 % LV Ejection Fraction MOD 2C 64.0 % LV Ejection Fraction 2C AL 64.6 % LA Diameter 3.7 cm IVC Diameter 1.8 cm M-MODE Aortic Annulus Diameter 2.9 cm LA Ao Ratio MM 1.4 MV E Point Septal Separation 0.7 cm DOPPLER AV Peak Velocity 0.0 cm/s LVOT Peak Velocity 82.0 cm/s MV Area PHT 5.4 cm squared Mitral E to A Ratio 1.0 MV E' Velocity 41.0 cm/s Mitral E to MV E' Ratio 5.5 Mitral E to LV E' Lateral Ratio 5.8 Mitral E to LV E' Septal Ratio 5.3 TR Peak Velocity 138.0 cm/s TR Peak Gradient 7.6 mmHg Right Atrial Pressure 3.0 mmHg Pulmonary Artery Systolic Pressu 10.6 mmHg FINDINGS Left Ventricle Normal left ventricular size and systolic function, EF 65 %. No regional wall motion abnormalities. Right Ventricle The right ventricle is normal in size and function. Right Atrium The right atrium is normal in size. Left Atrium The left atrium is normal in size. Mitral Valve Mildly thickened mitral valve. Aortic Valve No gross abnormalities noted Tricuspid Valve No gross abnormalities noted Pulmonic Valve No gross abnormalities noted Pericardium Normal pericardium without effusion. Aorta Normal ascending aorta dimension. IVC Normal IVC size CONCLUSIONS Normal left ventricular size and systolic function, EF 65 %. No regional wall motion abnormalities. Mildly thickened mitral valve. Normal cardiac chamber sizes. No intracardiac masses or vegetations. No significant pericardial effusion. Compared to the study from 12/30/2018, there may not be a significant change. Dr Jody Sosa MD FACC (Electronically Signed) Final Date: 11 November 2022 07:53 S
== END 2022-11-09 17:30 | disposition home or self-care (01) ==
LOC: ER 19:10 → CSU 19:39
PROVIDERS: Internal Medicine; Admitting Provider Internal Medicine; Emergency Provider Emergency Medicine; PCP Family Medicine; Visit Provider Internal Medicine
DX: I95.9 Hypotension, unspecified; E87.6 Hypokalemia; E78.5 Hyperlipidemia, unspecified; R77.8 Other specified abnormalities of plasma proteins; E03.9 Hypothyroidism, unspecified; F41.1 Generalized anxiety disorder; D68.51 Activated protein C resistance; R00.1 Bradycardia, unspecified; I47.1 Supraventricular tachycardia; I21.4 Non-ST elevation (NSTEMI) myocardial infarction
CPT/HCPCS: 36415; 71045; 80048; 80053; 81003; 83036; 83690; 83735; 83880; 84443; 84484; 85025; 85378; 93005; 93306; 93458; 96365; 96366; 96367; 96372; 96375; 99152; 99153; 99285; C1769; C1887; C1894; G0378; J1644; J1650; J2250; J2405; J3010; J3475; J3480; J7030; J7040; Q9967

== ENCOUNTER → 2023-07-07 11:33 | Outpatient (BNVA) | payer OTHER, SELFPAY | PROVIDERS: PCP Family Medicine; Visit Provider Nurse Practitioner Women's Health | DX: R30.0 Dysuria (principal) | CPT/HCPCS: 84315; 87086 ==